=== PATIENT | female | born 1940 | race Caucasian/White ===

== ENCOUNTER 2019-07-05 12:05 | Outpatient (CLI) | payer MEDICARE, OTHER, SELFPAY ==
[2019-07-05 13:10] LABS: Basophils % 0.4 %; Eosinophils # 0.1 10^3/uL (0.0-0.8); Eosinophils % 1.3 %; Hematocrit 37.7 % (37.0-47.0); Hemoglobin 11.9 g/dL (11.5-15.3); Lymphocytes # 1.2 10^3/uL (0.8-4.8); Lymphocytes % 22.3 %; Mean Corpuscular HGB Conc 31.6 g/dL (30.0-36.0); Mean Corpuscular Hemoglobin 31.1 pg (28.0-34.0); Mean Corpuscular Volume 98.4 fL (81-99); Mean Platelet Volume 11.6 fL (7.4-10.4); Monocytes # 0.4 10^3/uL (0.2-0.9); Monocytes % 6.6 %; Neutrophils # 3.9 10^3/uL (1.8-7.7); Neutrophils % 69.2 %; Nucleated Red Blood Cells % 0 %; Platelet Count 213 10^3/cmm (130-400); Red Blood Count 3.83 10^6/uL (4.1-5.3); White Blood Count 5.6 10^3/uL (4.0-10.0)
[2019-07-05 13:24] LABS: Alanine Aminotransferase 14 U/L (0-33); Albumin Level 3.7 g/dL (3.5-5.2); Alkaline Phosphatase 73 IU/L (35-105); Anion Gap 12.9 (5-19); Aspartate Amino Transferase 21 U/L (0-32); Blood Urea Nitrogen 10 mg/dL (8-23); Calcium 9.3 mg/dL (8.5-10.5); Carbon Dioxide 27 mmol/L (22-29); Chloride 104 mmol/L (98-107); Globulin 3.8 g/dL (1.3-4.6); Glucose 119 mg/dL (65-115); Lactate Dehydrogenase 185 U/L (135-214); Potassium 3.92; Sodium 140 mmol/L (136-145); Total Bilirubin 0.2 mg/dL (0.15-1.2); Total Protein 7.5 g/dL (6.6-8.7)
--- NOTE | 2019-07-06 07:34 | ONC FU_ITS ---
Dr. Palomares Patient Follow-Up Note Patient: Rosa Joyce Unit #: [id number]: 1940 Dicatated By: Eric Palomares M.D.Date of Visit:Jul 05, 2019 Onc Med Follow-up/Prog Note Chief Complaint: Lymphoma. 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 Sometime in the fall of 2015 she began having diarrhea. She also had a decline in appetite, and she began losing weight. She was seen by Jacquelin Richmond, and she was noted to have an abdominal mass on the right side. Contrast-enhanced CT abdomen/pelvis on 05/14/2016 showed a large soft tissue mass in the mid abdomen measuring 12.1 x 7.7 x 10.4 cm. It was noted to involve several small bowel loops, but without obstruction. She was additionally noted to have a 1.9 x 2.6 cm superficial right inguinal lymph node. There was no other lymphadenopathy noted on that study. There was evidence of small right pleural effusion and some ascites. Multiple low density lesions in the liver were felt to be most compatible with benign cysts. She was referred to Dr. Easley. She underwent right inguinal lymph node biopsy on 05/21/2016. Pathology showed malignant B-cell lymphoma consistent with low-grade (grade 1-2/3) follicular lymphoma. She underwent a course of chemotherapy with 5 cycles of bendamustine/Rituxan, which she completed in October 2016. Her treatment was complicated by moderately severe neutropenia and anemia, but overall she tolerated it well. 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 She was then admitted to the hospital for anticoagulation with heparin. She underwent removal of the Port-A-Cath. She was discharged home on Lovenox, but with subsequent transition to apixaban. A restaging PET/CT on 12/20/2016 showed a 6 cm matted central small bowel mass with SUV 1.4. The findings were felt to be consistent with a near complete response to therapy. Given those findings, she was then followed on observation/expectant management. Restaging CT scans on 02/19/2017 showed resolution of right paratracheal and left axillary lymph nodes. There was confluent central mesenteric lymphadenopathy measuring 4.3 x 4.6 cm, minimally improved compared to the study from November 2016. There was resolution of ascites, but there was some increase in the small right pleural effusion. Repeat CT scans of the chest, abdomen, and pelvis on 08/21/2017 showed increased large right pleural effusion with partial atelectasis of the right lower lobe and subsegmental atelectasis of the right upper and middle lobes. 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 She was noted to have large incarcerated hiatal hernia. There was evidence of cholelithiasis and persistent gallbladder wall or pericholecystic cholecystic edema. Incidental hepatic cysts were unchanged. There was stable central mesenteric scarring and thickening with adjacent small bowel distortion, similar to prior studies. She continued observation/expectant management. On 09/18/2017 she was admitted to the hospital after presenting with a 2-day history of nausea/vomiting along with fatigue and generalized aching. She was noted to have moderately severe neutropenia. Her bone marrow aspiration/biopsy on 09/23/2017 showed no diagnostic findings. The flow cytometry did show a low concentration of a B-cell population with a possible lambda light chain excess, but that was felt to be nonspecific. Her tick fever panel showed a positive IgG antibody to [place] spotted fever at a 1:128 titer. The IgM was negative. By clinical evaluation this appeared to be most likely a viral infection, and she did recover with conservative management. Surveillance CT scans of the chest, abdomen, and pelvis on 02/26/2018 showed moderate to large right pleural effusion, though decreased from the August study. There was no change in the occlusion of the upper aspect of the superior vena cava. There was evidence of a large incarcerated hiatal hernia. The abdomen/pelvis showed stable appearance of central mesenteric scarring involving several loops of small bowel and hepatic flexure of the colon and proximal transverse colon. There was no evidence of neoplastic process of the chest or of the remainder of the abdomen/pelvis. There was evidence of right pelvocaliectasis and possible right ureteropelvic junction obstruction. She was seen for a followup visit on 08/31/2018. Her WBC was moderately decreased, but she appeared stable clinically, and she continued on observation/expectant management for the lymphoma. On 09/03/2018 she presented to the emergency room with abrupt onset of severe weakness. She was not having fever or chills. She was hypotensive. Her WBC was still moderately decreased. Her chemistry studies showed elevated BUN and creatinine. Her SGOT had increased from 43 to 103 U/L. LDH had increased from 219 to 596 U/L. Urinalysis was unrevealing. Chest xray showed no acute findings. She was admitted to the hospital and given IV fluids and empiric antibiotic coverage. She improved clinically. Blood cultures remained negative. She was discharged home on 09/05/2018 on antibiotic coverage with Levaquin. I had seen her for a follow-up visit on 09/07/2018. She was improving clinically, and she continued on observation/expectant management. Her medical history is otherwise unremarkable. She has had no prior medical illnesses or surgeries. She is a nonsmoker. INTERIM HISTORY: She is seen for a scheduled visit. She has been feeling good generally. She has good energy and activity tolerance. ECOG score is 0. Her appetite is fair. She has continued to gain weight. She has no fever or night sweats. She does not complain of shortness of breath, cough, or chest pain. She currently has no GI or complaints. She has been having some joint pain, mainly in the thumbs. She also has some pain in her left shoulder. She does not complain of headache or dizziness, and she has no focal neurologic symptoms. Medications: Acetaminophen 1 Tablet (of 500 mg) Oral PRN, Eliquis 1 (10 mg) Tablet Oral daily, One Daily For Women 1 Tablet Oral daily Allergies: No Known Allergies. Review of Systems: Constitutional - She has good energy, and she has normal activity. Appetite is fair. She has continued to gain weight. No fever or night sweats. ECOG score is 1, ENMT - She has occasional sinus drainage. No mouth sores. Her throat is sometimes a little achy. She has no difficulty swallowing, Hematologic/Lymphatic - She has some bruising, Respiratory - No shortness of breath. No cough. No pleuritic pain or hemoptysis, Cardiovascular - No angina pain. No palpitations, Gastrointestinal - No nausea or vomiting. No heartburn or acid reflux. No diarrhea or constipation. No blood in the stool or black stools, Genitourinary (F) - No dysuria or hematuria. No urgency or incontinence, Musculoskeletal - She has a little joint pain, mainly in her thumbs, and she has pain in her left shoulder, Integumentary - No skin complications, Neurologic - No headache or dizziness. No numbness/paresthesias or other focal neurologic symptoms, Psychiatric - No anxiety or depression. No insomnia. Vital Signs: Performed on Jul 05, 2019 13:48 Height - 64.00 in Weight - 101.6 lbs (HIGH) BSA - 1.47 sq.m BMI - 17.44 (LOW) Temperature - 98.2 F (LOW) Pulse - 69 /min Respiration - 19 /min BP - 121/86 mm(hg) O2 Sat - 97 % Pain - 0 Physical Examination: Constitutional - She looks pretty good generally, Eyes - Sclerae nonicteric. Conjunctivae clear, ENMT - No lesions noted in the oral cavity, Hematologic/Lymphatic - No cervical, clavicular, or axillary adenopathy, Respiratory - Lungs are clear with good air movement bilaterally, Cardiovascular - Heart rhythm is regular. There is no murmur, gallop, or rub noted, Abdomen - Abdomen is still mildly distended and tympanic. Liver and spleen are not enlarged. There is no abdominal mass or ascites noted and there is no inguinal adenopathy, Extremities - Slight edema, Neurologic - No focal neurologic deficits noted. Lab/Imaging: Test performed on Jul 05, 2019 12:22 LDH (Total) 185 U/L Sodium 140 mmol/L Potassium 3.92 mmol/L Chloride 104 mmol/L CO2 27 mmol/L Anion Gap 12.9 BUN 10 mg/dL Creatinine 0.7 mg/dL Cr Clearance (Est) 47.41 mL/min Glucose 119 mg/dL Calcium 9.3 mg/dL Protein, Total 7.5 g/dL Albumin 3.7 g/dL Globulin 3.8 g/dL Bilirubin, Total 0.2 mg/dL ALT (SGPT) 14 U/L AST (SGOT) 21 U/L Alkaline Phosphatase 73 IU/L WBC 5.6 10 3/uL RBC 3.83 10 6/uL HGB 11.9 g/dL HCT 37.7 % MCV 98.4 fL MCH 31.1 pg MCHC 31.6 g/dL RDW 15.0 % Platelet Count 213 10 3/cmm MPV 11.6 fL Neutrophils 3.9 10 3/uL Lymphocytes 1.2 10 3/uL Monocytes 0.4 10 3/uL Eosinophils 0.1 10 3/uL Basophils 0.0 10 3/uL Neutrophil % 69.2 % Lymphocyte % 22.3 % Monocyte % 6.6 % Eosinophil % 1.3 % Basophils % 0.4 % Impression: 1. 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 Involvement appeared to be limited to a large abdominal mass and a right inguinal lymph node. As such, her disease was stage II. 2. CT findings also included small right pleural effusion and ascites. She also is moderately anemic. 3. She had chronic diarrhea, possibly due to involvement in the small bowel, and she was moderately anemic at baseline. 4. She had GERD symptoms and evidence of hiatal hernia by CT scan. She underwent treatment with 5 cycles of bendamustine/Rituxan from May through October 2016. Her cycle 6 was delayed 2 weeks due to moderately severe neutropenia. At that point she presented with facial swelling and jugulovenous distention, and repeat CT scans showed evidence of superior vena cava thrombus. She underwent removal of the Port-A-Cath venous access device, following which she continued anticoagulation with Lovenox, subsequently transitioned to apixaban. Her restaging PET/CT on 12/20/2016 showed residual 6 cm centimeter mass in the central small bowel, but with minimal FDG activity, consistent with near complete response to therapy. Given those findings, she was then followed on observation/expectant management. During subsequent follow-up, she had gradual improvement in her performance status. Her surveillance CT scans had shown persistent thrombus in the superior vena cava and there was evidence of increasing right pleural effusion, which did not appear to be symptomatic. As of her follow-up visit on 08/25/2017, there was no other indication of disease progression and she continued on observation/expectant management. In September 2017 she was admitted to the hospital with moderately severe neutropenia in association with a 2-day history of nausea/vomiting, fatigue, generalized aching, and chills, but no fever. Bone marrow aspiration/biopsy showed no diagnostic findings. Clinically the illness appeared most consistent with a viral syndrome, and she had an uneventful recovery with conservative management. Her surveillance CT scans on February 2018 showed no evidence of disease progression. On 09/03/2018 she was admitted to the hospital with severe weakness and hypotension. Her neutrophil count was still moderately decreased. Her LDH level had increased significantly. A specific cause for the illness was not identified, but she did show significant improvement on empiric antibiotic coverage with Levaquin. During subsequent follow-up there was gradual improvement in her performance status. She has since then been doing well clinically with no evidence of progression of the lymphoma. Plan: She remains on observation/expectant management. I will see her again in 6 months, or sooner as needed. Signed By: Eric Palomares M.D. <<Signature on File>>
== END 2019-07-05 12:06 | disposition home or self-care (01) ==
LOC: ONCMED 12:11
PROVIDERS: Visit Provider Internal Medicine Medical Oncology
DX: Z08 Encounter for follow-up examination after completed treatment for malignant neoplasm (principal); Z85.72 Personal history of non-Hodgkin lymphomas; Z23 Encounter for immunization; K21.9 Gastro-esophageal reflux disease without esophagitis; K44.9 Diaphragmatic hernia without obstruction or gangrene; Z79.01 Long term (current) use of anticoagulants; Z92.21 Personal history of antineoplastic chemotherapy; Z92.25 Personal history of immunosuppression therapy
CPT/HCPCS: 36415; 80053; 83615; 85025; 90471; G0463

== ENCOUNTER 2020-01-03 13:45 | Outpatient (CLI) | payer MEDICARE, OTHER, SELFPAY ==
[2020-01-03 14:05] LABS: Basophils % 0.4 %; Eosinophils # 0.1 10^3/uL (0.0-0.8); Eosinophils % 0.9 %; Hematocrit 42.2 % (37.0-47.0); Lymphocytes # 1.4 10^3/uL (0.8-4.8); Lymphocytes % 24.7 %; Mean Corpuscular HGB Conc 30.8 g/dL (30.0-36.0); Mean Corpuscular Hemoglobin 30.4 pg (28.0-34.0); Mean Corpuscular Volume 98.8 fL (81-99); Mean Platelet Volume 11.1 fL (7.4-10.4); Monocytes # 0.3 10^3/uL (0.2-0.9); Monocytes % 5.8 %; Neutrophils # 3.86 10^3/uL (1.8-7.7); Nucleated Red Blood Cells % 0 %; Platelet Count 227 10^3/cmm (130-400); Red Blood Count 4.27 10^6/uL (4.1-5.3); Red Cell Distribution Width 15.6 % (12.1-15.1); White Blood Count 5.7 10^3/uL (4.0-10.0)
[2020-01-03 14:29] LABS: Alanine Aminotransferase 18 U/L (0-33); Albumin Level 4.1 g/dL (3.5-5.2); Alkaline Phosphatase 73 IU/L (35-105); Aspartate Amino Transferase 23 U/L (0-32); Blood Urea Nitrogen 10 mg/dL (8-23); Carbon Dioxide 26 mmol/L (22-29); Chloride 104 mmol/L (98-107); Globulin 4.2 g/dL (1.3-4.6); Glucose 106 mg/dL (65-115); Osmolality Calculated 286 mOsm/kg (285-295); Sodium 140 mmol/L (136-145); Total Bilirubin 0.3 mg/dL (0.15-1.2); Total Protein 8.3 g/dL (6.6-8.7)
[2020-01-03 14:51] LABS: Anion Gap 14.1 (5-19); Lactate Dehydrogenase 203 U/L (135-214); Potassium 4.1 mmol/L (3.5-5.1)
--- NOTE | 2020-01-03 19:09 | ONC FU_ITS ---
Dr. Palomares Patient Follow-Up Note Patient: Rosa Joyce Unit #: [id number]: [id number] Dicatated By: Eric Palomares M.D.Date of Visit:Jan 03, 2020 Onc Med Follow-up/Prog Note Chief Complaint: Lymphoma. 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 Sometime in the fall of 2015 she began having diarrhea. She also had a decline in appetite, and she began losing weight. She was seen by Jacquelin Richmond, and she was noted to have an abdominal mass on the right side. Contrast-enhanced CT abdomen/pelvis on 05/14/2016 showed a large soft tissue mass in the mid abdomen measuring 12.1 x 7.7 x 10.4 cm. It was noted to involve several small bowel loops, but without obstruction. She was additionally noted to have a 1.9 x 2.6 cm superficial right inguinal lymph node. There was no other lymphadenopathy noted on that study. There was evidence of small right pleural effusion and some ascites. Multiple low density lesions in the liver were felt to be most compatible with benign cysts. She was referred to Dr. Easley. She underwent right inguinal lymph node biopsy on 05/21/2016. Pathology showed malignant B-cell lymphoma consistent with low-grade (grade 1-2/3) follicular lymphoma. She underwent a course of chemotherapy with 5 cycles of bendamustine/Rituxan, which she completed in October 2016. Her treatment was complicated by moderately severe neutropenia and anemia, but overall she tolerated it well. 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 She was then admitted to the hospital for anticoagulation with heparin. She underwent removal of the Port-A-Cath. She was discharged home on Lovenox, but with subsequent transition to apixaban. A restaging PET/CT on 12/20/2016 showed a 6 cm matted central small bowel mass with SUV 1.4. The findings were felt to be consistent with a near complete response to therapy. Given those findings, she was then followed on observation/expectant management. Restaging CT scans on 02/19/2017 showed resolution of right paratracheal and left axillary lymph nodes. There was confluent central mesenteric lymphadenopathy measuring 4.3 x 4.6 cm, minimally improved compared to the study from November 2016. There was resolution of ascites, but there was some increase in the small right pleural effusion. Repeat CT scans of the chest, abdomen, and pelvis on 08/21/2017 showed increased large right pleural effusion with partial atelectasis of the right lower lobe and subsegmental atelectasis of the right upper and middle lobes. 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 She was noted to have large incarcerated hiatal hernia. There was evidence of cholelithiasis and persistent gallbladder wall or pericholecystic cholecystic edema. Incidental hepatic cysts were unchanged. There was stable central mesenteric scarring and thickening with adjacent small bowel distortion, similar to prior studies. She continued observation/expectant management. On 09/18/2017 she was admitted to the hospital after presenting with a 2-day history of nausea/vomiting along with fatigue and generalized aching. She was noted to have moderately severe neutropenia. Her bone marrow aspiration/biopsy on 09/23/2017 showed no diagnostic findings. The flow cytometry did show a low concentration of a B-cell population with a possible lambda light chain excess, but that was felt to be nonspecific. Her tick fever panel showed a positive IgG antibody to [place] spotted fever at a 1:128 titer. The IgM was negative. By clinical evaluation this appeared to be most likely a viral infection, and she did recover with conservative management. Surveillance CT scans of the chest, abdomen, and pelvis on 02/26/2018 showed moderate to large right pleural effusion, though decreased from the August study. There was no change in the occlusion of the upper aspect of the superior vena cava. There was evidence of a large incarcerated hiatal hernia. The abdomen/pelvis showed stable appearance of central mesenteric scarring involving several loops of small bowel and hepatic flexure of the colon and proximal transverse colon. There was no evidence of neoplastic process of the chest or of the remainder of the abdomen/pelvis. There was evidence of right pelvocaliectasis and possible right ureteropelvic junction obstruction. She was seen for a followup visit on 08/31/2018. Her WBC was moderately decreased, but she appeared stable clinically, and she continued on observation/expectant management for the lymphoma. On 09/03/2018 she presented to the emergency room with abrupt onset of severe weakness. She was not having fever or chills. She was hypotensive. Her WBC was still moderately decreased. Her chemistry studies showed elevated BUN and creatinine. Her SGOT had increased from 43 to 103 U/L. LDH had increased from 219 to 596 U/L. Urinalysis was unrevealing. Chest xray showed no acute findings. She was admitted to the hospital and given IV fluids and empiric antibiotic coverage. She improved clinically. Blood cultures remained negative. She was discharged home on 09/05/2018 on antibiotic coverage with Levaquin. I had seen her for a follow-up visit on 09/07/2018. She was improving clinically, and she continued on observation/expectant management. Her medical history is otherwise unremarkable. She has had no prior medical illnesses or surgeries. She is a nonsmoker. INTERIM HISTORY: She is seen for a scheduled visit. She has been feeling good generally. She has good energy and she has normal activity. 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 Her ECOG score is 0. She has good appetite, though she eats just small meals. She has not been able to maintain her weight, and she actually is down 6 pounds from her last visit. She does not have fever or night sweats. She has no shortness of breath, cough, or chest pain. She has occasional nausea and/or heartburn, but that has been associated with specific foods. She has no other GI or complaints. She sometimes has muscle cramps in her legs, usually when she first gets up in the morning. She has no significant joint or bone pain. She has no focal neurologic symptoms. Medications: Acetaminophen 1 Tablet (of 500 mg) Oral PRN, Eliquis 1 (10 mg) Tablet Oral daily, One Daily For Women 1 Tablet Oral daily Allergies: No Known Allergies. Review of Systems: Constitutional - She has been feeling good. Her energy is good and she has normal acitivity without restrictions. Her appetite is good and she is eating well, but she is not able to maintain weight. She is down 6 pounds from last visit. No fever, night sweats, or hot flashes. ECOG score is 0, ENMT - No sinus congestion/drainage. No mouth sores. No sore throat or difficulty swallowing, Hematologic/Lymphatic - No abnormal bruising or bleeding, Respiratory - No shortness of breath. No cough. No pleuritic pain or hemoptysis, Cardiovascular - No angina pain. No palpitations, Gastrointestinal - She has occasional nausea, associated with specific foods. No vomiting. She also has occasional heartburn depending on what she eats. No diarrhea or constipation. No blood in the stool or black stools, Genitourinary (F) - No dysuria or hematuria. No urinary frequency. No urgency or incontinence, Musculoskeletal - She has occasional cramping in her legs. This is mainly in the mornings. She has no significant joint or bone pain, Integumentary - No skin complications, Neurologic - No headache or dizziness. No numbness or tingling. No other focal neurologic symptoms, Psychiatric - No anxiety or depression. No insomnia. Vital Signs: Performed on Jan 03, 2020 14:55 Height - 64.00 in Weight - 95.4 lbs (LOW) BSA - 1.43 sq.m BMI - 16.38 (LOW) Temperature - 98.3 F (LOW) Pulse - 60 /min Respiration - 18 /min BP - 153/82 mm(hg) (HIGH) O2 Sat - 98 % Pain - 0 Physical Examination: Constitutional - She appears thin and somewhat frail, but she otherwise looks good generally, Eyes - Sclerae nonicteric. Conjunctivae clear, ENMT - No lesions noted in the oral cavity, Hematologic/Lymphatic - No cervical, clavicular, or axillary adenopathy, Respiratory - Lungs are clear with good air movement bilaterally, Cardiovascular - Heart rhythm is regular. There is no murmur, gallop, or rub noted, Abdomen - Abdomen is soft. Liver and spleen are not enlarged. There is no abdominal mass or ascites noted and there is no inguinal adenopathy, Extremities - No edema. Pedal pulses are palpable bilaterally, Neurologic - No focal neurologic deficits noted. Lab/Imaging: Test performed on Jan 03, 2020 13:54 LDH (Total) 203 U/L Sodium 140 mmol/L Potassium 4.1 mmol/L Chloride 104 mmol/L CO2 26 mmol/L Anion Gap 14.1 BUN 10 mg/dL Creatinine 0.9 mg/dL Cr Clearance (Est) 34.06 mL/min Glucose 106 mg/dL Calcium 10.0 mg/dL Protein, Total 8.3 g/dL Albumin 4.1 g/dL Globulin 4.2 g/dL Bilirubin, Total 0.3 mg/dL ALT (SGPT) 18 U/L AST (SGOT) 23 U/L Alkaline Phosphatase 73 IU/L WBC 5.7 10 3/uL RBC 4.27 10 6/uL HGB 13.0 g/dL HCT 42.2 % MCV 98.8 fL MCH 30.4 pg MCHC 30.8 g/dL RDW 15.6 % Platelet Count 227 10 3/cmm MPV 11.1 fL Neutrophils 3.86 10 3/uL Lymphocytes 1.4 10 3/uL Monocytes 0.3 10 3/uL Eosinophils 0.1 10 3/uL Basophils 0.0 10 3/uL Neutrophil % 68.0 % Lymphocyte % 24.7 % Monocyte % 5.8 % Eosinophil % 0.9 % Basophils % 0.4 % NRBC % 0 % Impression: 1. 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 Involvement appeared to be limited to a large abdominal mass and a right inguinal lymph node. As such, her disease was stage II. 2. CT findings also included small right pleural effusion and ascites. She also is moderately anemic. 3. She had chronic diarrhea, possibly due to involvement in the small bowel, and she was moderately anemic at baseline. 4. She had GERD symptoms and evidence of hiatal hernia by CT scan. She underwent treatment with 5 cycles of bendamustine/Rituxan from May through October 2016. Her cycle 6 was delayed 2 weeks due to moderately severe neutropenia. At that point she presented with facial swelling and jugulovenous distention, and repeat CT scans showed evidence of superior vena cava thrombus. She underwent removal of the Port-A-Cath venous access device, following which she continued anticoagulation with Lovenox, subsequently transitioned to apixaban. Her restaging PET/CT on 12/20/2016 showed residual 6 cm centimeter mass in the central small bowel, but with minimal FDG activity, consistent with near complete response to therapy. Given those findings, she was then followed on observation/expectant management. During subsequent follow-up, she had gradual improvement in her performance status. Her surveillance CT scans had shown persistent thrombus in the superior vena cava and there was evidence of increasing right pleural effusion, which did not appear to be symptomatic. As of her follow-up visit on 08/25/2017, there was no other indication of disease progression and she continued on observation/expectant management. In September 2017 she was admitted to the hospital with moderately severe neutropenia in association with a 2-day history of nausea/vomiting, fatigue, generalized aching, and chills, but no fever. Bone marrow aspiration/biopsy showed no diagnostic findings. Clinically the illness appeared most consistent with a viral syndrome, and she had an uneventful recovery with conservative management. Her surveillance CT scans on February 2018 showed no evidence of disease progression. On 09/03/2018 she was admitted to the hospital with severe weakness and hypotension. Her neutrophil count was still moderately decreased. Her LDH level had increased significantly. A specific cause for the illness was not identified, but she did show significant improvement on empiric antibiotic coverage with Levaquin. During subsequent follow-up there was gradual improvement in her performance status. She has since then been doing well clinically. She has good energy and activity tolerance. She has had difficulty maintaining her weight, which may be due at least in part to the fact that she can only eat small meals. She has no other significant GI complaints and there are no other symptoms or findings to suggest recurrence/progression of her lymphoma. Plan: She remains on observation/expectant management. I will see her again in 6 months. Signed By: Eric Palomares M.D. <<Signature on File>>
== END 2020-01-03 13:46 | disposition home or self-care (01) ==
LOC: ONCMED 13:49
PROVIDERS: Visit Provider Internal Medicine Medical Oncology
DX: Z08 Encounter for follow-up examination after completed treatment for malignant neoplasm (principal); Z85.72 Personal history of non-Hodgkin lymphomas; R63.4 Abnormal weight loss; Z68.1 Body mass index [BMI] 19.9 or less, adult; Z92.22 Personal history of monoclonal drug therapy; Z92.21 Personal history of antineoplastic chemotherapy
CPT/HCPCS: 80053; 83615; 85025; G0463

== ENCOUNTER 2020-07-03 12:08 | Outpatient (CLI) | payer MEDICARE, OTHER, SELFPAY ==
[2020-07-03 12:37] LABS: Basophils % 0.5 %; Eosinophils # 0.1 10^3/uL (0.0-0.8); Eosinophils % 1.1 %; Hematocrit 40.7 % (37.0-47.0); Hemoglobin 12.5 g/dL (11.5-15.3); Lymphocytes # 1.1 10^3/uL (0.8-4.8); Lymphocytes % 25.1 %; Mean Corpuscular HGB Conc 30.7 g/dL (30.0-36.0); Mean Corpuscular Volume 97.8 fL (81-99); Mean Platelet Volume 11.1 fL (7.4-10.4); Monocytes # 0.3 10^3/uL (0.2-0.9); Neutrophils # 2.93 10^3/uL (1.8-7.7); Neutrophils % 66.1 %; Nucleated Red Blood Cells % 0 %; Platelet Count 228 10^3/cmm (130-400); Red Blood Count 4.16 10^6/uL (4.1-5.3); Red Cell Distribution Width 15.4 % (12.1-15.1); White Blood Count 4.4 10^3/uL (4.0-10.0)
[2020-07-03 12:59] LABS: Alanine Aminotransferase 16 U/L (0-33); Albumin Level 4.1 g/dL (3.5-5.2); Alkaline Phosphatase 68 IU/L (35-105); Anion Gap 11.9 (5-19); Aspartate Amino Transferase 24 U/L (0-32); Blood Urea Nitrogen 13 mg/dL (8-23); Calcium 9.2 mg/dL (8.5-10.5); Carbon Dioxide 28 mmol/L (22-29); Chloride 103 mmol/L (98-107); Globulin 4.2 g/dL (1.3-4.6); Glucose 94 mg/dL (65-115); Lactate Dehydrogenase 222 U/L (135-214); Osmolality Calculated 288 mOsm/kg (285-295); Potassium 3.9 mmol/L (3.5-5.1); Sodium 139 mmol/L (136-145); Total Bilirubin 0.3 mg/dL (0.15-1.2); Total Protein 8.3 g/dL (6.6-8.7)
--- NOTE | 2020-07-05 06:40 | ONC FU_ITS ---
Dr. Palomares Patient Follow-Up Note Patient: Rosa Joyce Unit #: [id number]: [id number] Dicatated By: Eric Palomares M.D.Date of Visit:Jul 03, 2020 Onc Med Follow-up/Prog Note Chief Complaint: Lymphoma. 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 Sometime in the fall of 2015 she began having diarrhea. She also had a decline in appetite, and she began losing weight. She was seen by Jacquelin Richmond, and she was noted to have an abdominal mass on the right side. Contrast-enhanced CT abdomen/pelvis on 05/14/2016 showed a large soft tissue mass in the mid abdomen measuring 12.1 x 7.7 x 10.4 cm. It was noted to involve several small bowel loops, but without obstruction. She was additionally noted to have a 1.9 x 2.6 cm superficial right inguinal lymph node. There was no other lymphadenopathy noted on that study. There was evidence of small right pleural effusion and some ascites. Multiple low density lesions in the liver were felt to be most compatible with benign cysts. She was referred to Dr. Easley. She underwent right inguinal lymph node biopsy on 05/21/2016. Pathology showed malignant B-cell lymphoma consistent with low-grade (grade 1-2/3) follicular lymphoma. She underwent a course of chemotherapy with 5 cycles of bendamustine/Rituxan, which she completed in October 2016. Her treatment was complicated by moderately severe neutropenia and anemia, but overall she tolerated it well. 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 She was then admitted to the hospital for anticoagulation with heparin. She underwent removal of the Port-A-Cath. She was discharged home on Lovenox, but with subsequent transition to apixaban. A restaging PET/CT on 12/20/2016 showed a 6 cm matted central small bowel mass with SUV 1.4. The findings were felt to be consistent with a near complete response to therapy. Given those findings, she was then followed on observation/expectant management. Restaging CT scans on 02/19/2017 showed resolution of right paratracheal and left axillary lymph nodes. There was confluent central mesenteric lymphadenopathy measuring 4.3 x 4.6 cm, minimally improved compared to the study from November 2016. There was resolution of ascites, but there was some increase in the small right pleural effusion. Repeat CT scans of the chest, abdomen, and pelvis on 08/21/2017 showed increased large right pleural effusion with partial atelectasis of the right lower lobe and subsegmental atelectasis of the right upper and middle lobes. 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 She was noted to have large incarcerated hiatal hernia. There was evidence of cholelithiasis and persistent gallbladder wall or pericholecystic cholecystic edema. Incidental hepatic cysts were unchanged. There was stable central mesenteric scarring and thickening with adjacent small bowel distortion, similar to prior studies. She continued observation/expectant management. On 09/18/2017 she was admitted to the hospital after presenting with a 2-day history of nausea/vomiting along with fatigue and generalized aching. She was noted to have moderately severe neutropenia. Her bone marrow aspiration/biopsy on 09/23/2017 showed no diagnostic findings. The flow cytometry did show a low concentration of a B-cell population with a possible lambda light chain excess, but that was felt to be nonspecific. Her tick fever panel showed a positive IgG antibody to [place] spotted fever at a 1:128 titer. The IgM was negative. By clinical evaluation this appeared to be most likely a viral infection, and she did recover with conservative management. Surveillance CT scans of the chest, abdomen, and pelvis on 02/26/2018 showed moderate to large right pleural effusion, though decreased from the August study. There was no change in the occlusion of the upper aspect of the superior vena cava. There was evidence of a large incarcerated hiatal hernia. The abdomen/pelvis showed stable appearance of central mesenteric scarring involving several loops of small bowel and hepatic flexure of the colon and proximal transverse colon. There was no evidence of neoplastic process of the chest or of the remainder of the abdomen/pelvis. There was evidence of right pelvocaliectasis and possible right ureteropelvic junction obstruction. She was seen for a followup visit on 08/31/2018. Her WBC was moderately decreased, but she appeared stable clinically, and she continued on observation/expectant management for the lymphoma. On 09/03/2018 she presented to the emergency room with abrupt onset of severe weakness. She was not having fever or chills. She was hypotensive. Her WBC was still moderately decreased. Her chemistry studies showed elevated BUN and creatinine. Her SGOT had increased from 43 to 103 U/L. LDH had increased from 219 to 596 U/L. Urinalysis was unrevealing. Chest xray showed no acute findings. She was admitted to the hospital and given IV fluids and empiric antibiotic coverage. She improved clinically. Blood cultures remained negative. She was discharged home on 09/05/2018 on antibiotic coverage with Levaquin. I had seen her for a follow-up visit on 09/07/2018. She was improving clinically, and she continued on observation/expectant management. During follow-up her liver enzymes returned to normal and her LDH remains just slightly elevated. Her medical history is otherwise unremarkable. She has had no prior medical illnesses or surgeries. She is a nonsmoker. INTERIM HISTORY: She is seen for a scheduled visit. She has been feeling good generally. She has good energy and activity tolerance. She says she walks every day. ECOG score is 0. Her appetite is been okay, though she says she is not a big eater. Her weight is down a couple pounds. She does not have fever or night sweats. She has some cough attributable to sinus drainage. She has no shortness of breath or chest pain. She has no GI or complaints. She has a little arthritis in her left thumb. She has no other joint or bone pain. She does not complain of headache or dizziness. She has no focal neurologic symptoms. Medications: Acetaminophen 1 Tablet (of 500 mg) Oral PRN, One Daily For Women 1 Tablet Oral daily, Xarelto 1 (10 mg) Tablet Oral daily Allergies: No Known Allergies. Vital Signs: Performed on Jul 03, 2020 14:06 Height - 64.00 in Weight - 93.8 lbs (LOW) BSA - 1.42 sq.m BMI - 16.10 (LOW) Temperature - 98.1 F (LOW) Pulse - 77 /min Respiration - 17 /min BP - 174/99 mm(hg) (HIGH) O2 Sat - 99 % Pain - 0 Physical Examination: Constitutional - She looks good generally, Eyes - Sclerae nonicteric. Conjunctivae clear, ENMT - No lesions noted in the oral cavity, Hematologic/Lymphatic - No cervical, clavicular, or axillary adenopathy, Respiratory - Lungs are clear with good air movement bilaterally, Cardiovascular - Heart rhythm is regular. There is no murmur, gallop, or rub noted, Abdomen - Abdomen is soft. Liver and spleen are not enlarged. There is no abdominal mass or ascites noted and there is no inguinal adenopathy, Extremities - No edema, Neurologic - No focal neurologic deficits noted. Lab/Imaging: Test performed on Jul 03, 2020 12:29 LDH (Total) 222 U/L Sodium 139 mmol/L Potassium 3.9 mmol/L Chloride 103 mmol/L CO2 28 mmol/L Anion Gap 11.9 BUN 13 mg/dL Creatinine 0.8 mg/dL Cr Clearance (Est) 37.67 mL/min Glucose 94 mg/dL Osmolality - Calculated 288 mOsm/kg Calcium 9.2 mg/dL Protein, Total 8.3 g/dL Albumin 4.1 g/dL Globulin 4.2 g/dL Bilirubin, Total 0.3 mg/dL ALT (SGPT) 16 U/L AST (SGOT) 24 U/L Alkaline Phosphatase 68 IU/L WBC 4.4 10 3/uL RBC 4.16 10 6/uL HGB 12.5 g/dL HCT 40.7 % MCV 97.8 fL MCH 30.0 pg MCHC 30.7 g/dL RDW 15.4 % Platelet Count 228 10 3/cmm MPV 11.1 fL Neutrophils 2.93 10 3/uL Lymphocytes 1.1 10 3/uL Monocytes 0.3 10 3/uL Eosinophils 0.1 10 3/uL Basophils 0.0 10 3/uL Neutrophil % 66.1 % Lymphocyte % 25.1 % Monocyte % 7.0 % Eosinophil % 1.1 % Basophils % 0.5 % NRBC % 0 % Problem List: 1. 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 Involvement appeared to be limited to a large abdominal mass and a right inguinal lymph node. As such, her disease was stage II. 2. She had GERD symptoms and evidence of hiatal hernia by CT scan. 3. Her treatment was complicated by portacath related superior vena cava thrombus. She underwent removal of the Port-A-Cath venous access device, following which she continued anticoagulation with Lovenox, subsequently transitioned to apixaban. Problems Addressed with this Encounter and Plan: 1. 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 Involvement appeared to be limited to a large abdominal mass and the right inguinal lymph node. As such, her disease was stage II, though CT findings also included small right pleural effusion and ascites. At pressentation she had chronic diarrhea, possibly due to involvement in the small bowel, and she was moderately anemic at baseline. She underwent treatment with 5 cycles of bendamustine/Rituxan from May through October 2016. Her restaging PET/CT on 12/20/2016 showed residual 6 cm centimeter mass in the central small bowel, but with minimal FDG activity, consistent with near complete response to therapy. Given those findings, she was then followed on observation/expectant management. During follow-up she has had a couple of hospitalizations for acute GI related illnesses, but these resolved with conservative management. Thus far there has been no evidence of progression of the lymphoma. Overall, she appears to be doing well clinically. She remains on observation/expectant management. I will see her again in 6 months. 2. Her treatment was complicated by portacath related superior vena cava thrombus. She underwent removal of the Port-A-Cath venous access device, following which she continued anticoagulation with Lovenox, subsequently transitioned to apixaban. During follow-up she has continued anticoagulation with apixaban. Thus far there has been no evidence for any further thromboembolism. Signed By: Eric Palomares M.D. <<Signature on File>>
== END 2020-07-03 12:09 | disposition home or self-care (01) ==
LOC: ONCMED 12:11
PROVIDERS: Visit Provider Internal Medicine Medical Oncology
DX: C82.18 Follicular lymphoma grade II, lymph nodes of multiple sites (principal); Z86.718 Personal history of other venous thrombosis and embolism; Z79.01 Long term (current) use of anticoagulants; Z92.22 Personal history of monoclonal drug therapy; Z92.21 Personal history of antineoplastic chemotherapy
CPT/HCPCS: 36415; 80053; 83615; 85025; 99214

== ENCOUNTER 2021-01-01 10:26 | Outpatient (CLI) | payer MEDICARE, OTHER, SELFPAY ==
--- NOTE | 2021-01-01 11:04 | CT_ITS ---
WS: [id number] CT CHEST, ABDOMEN AND PELVIS WITH CONTRAST. HISTORY: LYMPHOMA TECHNIQUE: Contiguous 5 mm axial imaging performed through the chest, abdomen and pelvis with IV cont rast, oral contrast has been provided. Coronal and sagittal reformats chest. Coronal and sagittal ref ormats through the abdomen and pelvis. All CT scans at [facility] use at least one of the se dose optimization techniques: automated exposure control; mA and/or kV adjustment per patient size (includes targeted exams where dose is matched to clinical indication); or iterative reconstruction. CONTRAST: Omnipaque 300; 75 mL IV. DLP: 907.79 mGy.cm COMPARISON: 02/26/[address]: Moderate-sized layering RIGHT pleural effusion with mild improvement since the prior examin ation from 2018. No pulmonary mass, nodule or pneumonia. Mild atherosclerosis of the thoracic aorta. Ectasia with no aneurysm. Normal pulmonary artery size. No filling defects within the pulmonary arter ies centrally. Partial atelectasis of the RIGHT lower lobe due to the effusion. No mediastinal or hil ar adenopathy is identified. Patient has a known SVC occlusion. Abdomen CT: Normal size liver. There are a few cysts within the liver. Mild central bile duct dilatat ion is similar to the prior study. Patient has known cholelithiasis without acute cholecystitis. Norm al size spleen. Tail of the pancreas is prominent but similar to the prior study. Again noted is an 8 mm cyst within the body of the pancreas which is unchanged. No adrenal mass. Moderate dilatation of the RIGHT renal pelvis is similar to prior studies and probably represents UP junction obstruction. T he ureter distally is not dilated. LEFT kidney is negative. Atherosclerosis aorta. Large portion of the stomach is intrathoracic consistent with an incarcerated hiatal hernia. No adeno jad or ascites is appreciated. There is some very mild tethering of the central small bowel loops a nd mesentery. Very similar to the prior examination. Marked fecal retention and distention of the colon distally. Obstruction. Pelvic CT: No adenopathy along the iliac chains. Well-distended urinary bladder. Atrophic uterus as e xpected. Thoracolumbar scoliosis. Diffuse osteopenia. No osteoblastic or osteolytic bone disease. CT/CT chest abd pel w con* IMPRESSION: 1. No evidence for recurrent lymphoma throughout the chest, abdomen or pelvis. 2. Long-term stability of a layering RIGHT pleural effusion. 3. Moderate constipation in the distal colon. 4. Central small bowel tethering and mesentery similar to the prior study. Not causing an obstruction. May be due to treated lymphoma. There is some very mil d small bowel wall thickening but this is similar to the prior study. 5. Stable RIGHT hydronephrosis, likely due to chronic UP junction obstruction. 6. Large incarcerated hiatal hernia.
[2021-01-01 11:22] LABS: Basophils % 0.3 %; Eosinophils % 0.3 %; Hematocrit 41.4 % (37.0-47.0); Hemoglobin 12.9 g/dL (11.5-15.3); Lymphocytes % 33.1 %; Mean Corpuscular HGB Conc 31.2 g/dL (30.0-36.0); Mean Corpuscular Hemoglobin 29.7 pg (28.0-34.0); Mean Corpuscular Volume 95.4 fl (81-99); Mean Platelet Volume 11.3 fL (7.4-10.4); Monocytes # 0.3 10^3/uL (0.2-0.9); Neutrophils # 1.74 10^3/uL (1.8-7.7); Nucleated Red Blood Cells % 0 %; Platelet Count 185 10^3/cmm (130-400); Red Blood Count 4.34 10^6/uL (4.1-5.3); Red Cell Distribution Width 14.5 % (12.1-15.1); White Blood Count 3.1 10^3/uL (4.0-10.0)
[2021-01-01 11:41] LABS: Alanine Aminotransferase 15 U/L (0-33); Albumin Level 3.9 g/dL (3.5-5.2); Alkaline Phosphatase 67 IU/L (35-105); Anion Gap 12.6 (5-19); Aspartate Amino Transferase 26 U/L (0-32); Blood Urea Nitrogen 10 mg/dL (8-23); Calcium 8.5 mg/dL (8.5-10.5); Carbon Dioxide 26 mmol/L (22-29); Chloride 105 mmol/L (98-107); Globulin 3.8 g/dL (1.3-4.6); Glucose 96 mg/dL (65-115); Lactate Dehydrogenase 230 U/L (135-214); Osmolality Calculated 289 mOsm/kg (285-295); Potassium 3.6 mmol/L (3.5-5.1); Sodium 140 mmol/L (136-145); Total Bilirubin 0.4 mg/dL (0.15-1.2); Total Protein 7.7 g/dL (6.6-8.7)
[2021-01-01] MEDS: iohexol 300 mg/mL 100 mL Btl IV (12:35)
[2021-01-01] MEDS: iohexol 300 mg/mL 50 mL Btl PO (12:36)
== END 2021-01-01 10:27 | disposition home or self-care (01) ==
PROVIDERS: PCP Internal Medicine Medical Oncology; Visit Provider Internal Medicine Medical Oncology
DX: C82.13 Follicular lymphoma grade II, intra-abdominal lymph nodes (principal); K44.9 Diaphragmatic hernia without obstruction or gangrene; N13.30 Unspecified hydronephrosis; K59.00 Constipation, unspecified; J90 Pleural effusion, not elsewhere classified
CPT/HCPCS: 71260; 74177; 80053; 83615; 85025

== ENCOUNTER 2021-01-08 13:38 | Outpatient (CLI) | payer MEDICARE, OTHER, SELFPAY ==
--- NOTE | 2021-01-08 18:20 | ONC FU_ITS ---
Dr. Palomares Patient Follow-Up Note Patient: Rosa Joyce Unit #: [id number]: [id number] Dicatated By: Eric Palomares M.D.Date of Visit:Jan 08, 2021 Onc Med Follow-up/Prog Note Chief Complaint: Lymphoma. 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 Sometime in the fall of 2015 she began having diarrhea. She also had a decline in appetite, and she began losing weight. She was seen by Jacquelin Richmond, and she was noted to have an abdominal mass on the right side. Contrast-enhanced CT abdomen/pelvis on 05/14/2016 showed a large soft tissue mass in the mid abdomen measuring 12.1 x 7.7 x 10.4 cm. It was noted to involve several small bowel loops, but without obstruction. She was additionally noted to have a 1.9 x 2.6 cm superficial right inguinal lymph node. There was no other lymphadenopathy noted on that study. There was evidence of small right pleural effusion and some ascites. Multiple low density lesions in the liver were felt to be most compatible with benign cysts. She was referred to Dr. Easley. She underwent right inguinal lymph node biopsy on 05/21/2016. Pathology showed malignant B-cell lymphoma consistent with low-grade (grade 1-2/3) follicular lymphoma. She underwent a course of chemotherapy with 5 cycles of bendamustine/Rituxan, which she completed in October 2016. Her treatment was complicated by moderately severe neutropenia and anemia, but overall she tolerated it well. 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 She was then admitted to the hospital for anticoagulation with heparin. She underwent removal of the Port-A-Cath. She was discharged home on Lovenox, but with subsequent transition to apixaban. A restaging PET/CT on 12/20/2016 showed a 6 cm matted central small bowel mass with SUV 1.4. The findings were felt to be consistent with a near complete response to therapy. Given those findings, she was then followed on observation/expectant management. Restaging CT scans on 02/19/2017 showed resolution of right paratracheal and left axillary lymph nodes. There was confluent central mesenteric lymphadenopathy measuring 4.3 x 4.6 cm, minimally improved compared to the study from November 2016. There was resolution of ascites, but there was some increase in the small right pleural effusion. Repeat CT scans of the chest, abdomen, and pelvis on 08/21/2017 showed increased large right pleural effusion with partial atelectasis of the right lower lobe and subsegmental atelectasis of the right upper and middle lobes. 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 She was noted to have large incarcerated hiatal hernia. There was evidence of cholelithiasis and persistent gallbladder wall or pericholecystic cholecystic edema. Incidental hepatic cysts were unchanged. There was stable central mesenteric scarring and thickening with adjacent small bowel distortion, similar to prior studies. She continued observation/expectant management. On 09/18/2017 she was admitted to the hospital after presenting with a 2-day history of nausea/vomiting along with fatigue and generalized aching. She was noted to have moderately severe neutropenia. Her bone marrow aspiration/biopsy on 09/23/2017 showed no diagnostic findings. The flow cytometry did show a low concentration of a B-cell population with a possible lambda light chain excess, but that was felt to be nonspecific. Her tick fever panel showed a positive IgG antibody to [place] spotted fever at a 1:128 titer. The IgM was negative. By clinical evaluation this appeared to be most likely a viral infection, and she did recover with conservative management. Surveillance CT scans of the chest, abdomen, and pelvis on 02/26/2018 showed moderate to large right pleural effusion, though decreased from the August study. There was no change in the occlusion of the upper aspect of the superior vena cava. There was evidence of a large incarcerated hiatal hernia. The abdomen/pelvis showed stable appearance of central mesenteric scarring involving several loops of small bowel and hepatic flexure of the colon and proximal transverse colon. There was no evidence of neoplastic process of the chest or of the remainder of the abdomen/pelvis. There was evidence of right pelvocaliectasis and possible right ureteropelvic junction obstruction. She was seen for a followup visit on 08/31/2018. Her WBC was moderately decreased, but she appeared stable clinically, and she continued on observation/expectant management for the lymphoma. On 09/03/2018 she presented to the emergency room with abrupt onset of severe weakness. She was not having fever or chills. She was hypotensive. Her WBC was still moderately decreased. Her chemistry studies showed elevated BUN and creatinine. Her SGOT had increased from 43 to 103 U/L. LDH had increased from 219 to 596 U/L. Urinalysis was unrevealing. Chest xray showed no acute findings. She was admitted to the hospital and given IV fluids and empiric antibiotic coverage. She improved clinically. Blood cultures remained negative. She was discharged home on 09/05/2018 on antibiotic coverage with Levaquin. I had seen her for a follow-up visit on 09/07/2018. She was improving clinically, and she continued on observation/expectant management. During follow-up her liver enzymes returned to normal and her LDH remained just slightly elevated. Her medical history is otherwise unremarkable. She has had no prior medical illnesses or surgeries. She is a nonsmoker. INTERIM HISTORY: Her repeat CT scans of the chest, abdomen, and pelvis on 01/01/2021 showed no hilar or mediastinal adenopathy. There was noted to be long-term stability of a layering right pleural effusion. A large portion of the stomach was noted to be intrathoracic, consistent with an incarcerated hiatal hernia. There was noted to be some very mild tethering of the central small bowel loops and mesentery, similar to the prior study in February 2018. There was stable right hydronephrosis which appeared to be likely due to chronic UP junction obstruction. There was no adenopathy noted in the abdomen/pelvis. Overall, there was no evidence for recurrent lymphoma throughout the chest, abdomen, or pelvis. She is seen for a followup visit. She has been feeling good generally. She has pretty good energy/activity tolerance. ECOG score is 0. Her appetite has been good, but she has not been able to gain weight. She does not have fever or night sweats. She recently has had a little bit of sinus congestion and cough, but that seems to be getting better. She does not complain of shortness of breath or chest pain. She has no GI or complaints. She has no significant joint or bone pain. She does not complain of headache or dizziness. She has no numbness/paresthesia or other focal neurologic symptoms. Medications: Acetaminophen 1 Tablet (of 500 mg) Oral PRN, One Daily For Women 1 Tablet Oral daily, Xarelto 1 (10 mg) Tablet Oral daily Allergies: No Known Allergies. Vital Signs: Performed on Jan 08, 2021 16:01 Height - 64.00 in Weight - 90.4 lbs (LOW) BSA - 1.40 sq.m BMI - 15.52 (LOW) Temperature - 98.9 F (HIGH) Pulse - 72 /min Respiration - 18 /min BP - 157/82 mm(hg) (HIGH) O2 Sat - 94 % (LOW) Pain - 0 Fatigue - 0 Physical Examination: Constitutional - She looks pretty good generally, Eyes - Sclerae nonicteric. Conjunctivae clear, ENMT - No lesions noted in the oral cavity, Hematologic/Lymphatic - No cervical, clavicular, or axillary adenopathy, Respiratory - Lungs are clear with good air movement bilaterally, Cardiovascular - Heart rhythm is regular. There is no murmur, gallop, or rub noted, Abdomen - Abdomen is soft. Liver and spleen are not enlarged. There is no abdominal mass or ascites noted and there is no inguinal adenopathy, Extremities - No edema, Neurologic - No focal neurologic deficits noted. Lab/Imaging: Test performed on Jan 01, 2021 11:05 LDH (Total) 230 U/L Sodium 140 mmol/L Potassium 3.6 mmol/L Chloride 105 mmol/L CO2 26 mmol/L Anion Gap 12.6 BUN 10 mg/dL Creatinine 0.7 mg/dL Cr Clearance (Est) 42.3400 mL/min Glucose 96 mg/dL Osmolality - Calculated 289 mOsm/kg Calcium 8.5 mg/dL Protein, Total 7.7 g/dL Albumin 3.9 g/dL Globulin 3.8 g/dL Bilirubin, Total 0.4 mg/dL ALT (SGPT) 15 U/L AST (SGOT) 26 U/L Alkaline Phosphatase 67 IU/L WBC 3.1 10 3/uL RBC 4.34 10 6/uL HGB 12.9 g/dL HCT 41.4 % MCV 95.4 fl MCH 29.7 pg MCHC 31.2 g/dL RDW 14.5 % Platelet Count 185 10 3/cmm MPV 11.3 fL Neutrophils 1.74 10 3/uL Lymphocytes 1.0 10 3/uL Monocytes 0.3 10 3/uL Eosinophils 0.0 10 3/uL Basophils 0.0 10 3/uL Neutrophil % 56.0 % Lymphocyte % 33.1 % Monocyte % 10.0 % Eosinophil % 0.3 % Basophils % 0.3 % NRBC % 0 % Problem List: 1. 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 Involvement appeared to be limited to a large abdominal mass and a right inguinal lymph node at initial diagnosis in May 2016. 2. She had GERD symptoms and evidence of hiatal hernia by CT scan. 3. Her treatment was complicated by portacath related superior vena cava thrombus. She underwent removal of the Port-A-Cath venous access device, following which she continued anticoagulation with Lovenox, subsequently transitioned to apixaban. Problems Addressed with this Encounter and Plan: 1. 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 Involvement appeared to be limited to a large abdominal mass and the right inguinal lymph node. As such, her disease was stage II, though CT findings also included small right pleural effusion and ascites. At pressentation she had chronic diarrhea, possibly due to involvement in the small bowel, and she was moderately anemic at baseline. She underwent treatment with 5 cycles of bendamustine/Rituxan from May through October 2016. Her restaging PET/CT on 12/20/2016 showed residual 6 cm centimeter mass in the central small bowel, but with minimal FDG activity, consistent with near complete response to therapy. Given those findings, she was then followed on observation/expectant management. During follow-up she has had a couple of hospitalizations for acute GI related illnesses, but these resolved with conservative management. Overall, she has been doing well clinically. Thus far there has been no evidence of recurrence/progression of the lymphoma. She remains on observation/expectant management. I will see her again in 6 months. 2. Her treatment was complicated by portacath related superior vena cava thrombus. She underwent removal of the Port-A-Cath venous access device, following which she continued anticoagulation with Lovenox, subsequently transitioned to apixaban. During follow-up she has continued anticoagulation with apixaban. Thus far there has been no evidence for any further thromboembolism. Signed By: Eric Palomares M.D. <<Signature on File>>
== END 2021-01-08 13:39 | disposition home or self-care (01) ==
LOC: ONCMED 13:41
PROVIDERS: Visit Provider Internal Medicine Medical Oncology
DX: C82.28 Follicular lymphoma grade III, unspecified, lymph nodes of multiple sites (principal); Z79.01 Long term (current) use of anticoagulants
CPT/HCPCS: 99214

== ENCOUNTER 2021-07-09 13:33 | Outpatient (CLI) | payer MEDICARE, OTHER, SELFPAY ==
[2021-07-09 14:41] LABS: Basophils % 0.6 %; Eosinophils % 0.7 %; Hematocrit 39.8 % (37.0-47.0); Hemoglobin 12.5 g/dL (11.5-15.3); Lymphocytes # 1.1 10^3/uL (0.8-4.8); Mean Corpuscular HGB Conc 31.4 g/dL (30.0-36.0); Mean Corpuscular Volume 95.7 fl (81-99); Mean Platelet Volume 11.4 fL (7.4-10.4); Monocytes # 0.3 10^3/uL (0.2-0.9); Monocytes % 5.6 %; Neutrophils # 3.84 10^3/uL (1.8-7.7); Neutrophils % 71.9 %; Nucleated Red Blood Cells % 0 %; Platelet Count 237 10^3/cmm (130-400); Red Blood Count 4.16 10^6/uL (4.1-5.3); Red Cell Distribution Width 15.1 % (12.1-15.1); White Blood Count 5.3 10^3/uL (4.0-10.0)
[2021-07-09 15:00] LABS: Alanine Aminotransferase 23 U/L (0-33); Albumin Level 4.3 g/dL (3.5-5.2); Alkaline Phosphatase 77 IU/L (35-105); Aspartate Amino Transferase 27 U/L (0-32); Blood Urea Nitrogen 14 mg/dL (8-23); Calcium 9.4 mg/dL (8.5-10.5); Carbon Dioxide 26 mmol/L (22-29); Chloride 103 mmol/L (98-107); Globulin 4.4 g/dL (1.3-4.6); Glucose 110 mg/dL (65-115); Osmolality Calculated 293 mOsm/kg (285-295); Sodium 141 mmol/L (136-145); Total Bilirubin 0.3 mg/dL (0.15-1.2); Total Protein 8.7 g/dL (6.6-8.7)
[2021-07-09 15:36] LABS: Anion Gap 16.4 (5-19); Lactate Dehydrogenase 247 U/L (135-214); Potassium 4.4 mmol/L (3.5-5.1)
--- NOTE | 2021-07-09 17:40 | ONC FU_ITS ---
Dr. Palomares Patient Follow-Up Note Patient: Rosa Joyce Unit #: [id number]: [id number] Dicatated By: Eric Palomares M.D.Date of Visit:Jul 09, 2021 Onc Med Follow-up/Prog Note Chief Complaint: Lymphoma. 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 Sometime in the fall of 2015 she began having diarrhea. She also had a decline in appetite, and she began losing weight. She was seen by Jacquelin Richmond, and she was noted to have an abdominal mass on the right side. Contrast-enhanced CT abdomen/pelvis on 05/14/2016 showed a large soft tissue mass in the mid abdomen measuring 12.1 x 7.7 x 10.4 cm. It was noted to involve several small bowel loops, but without obstruction. She was additionally noted to have a 1.9 x 2.6 cm superficial right inguinal lymph node. There was no other lymphadenopathy noted on that study. There was evidence of small right pleural effusion and some ascites. Multiple low density lesions in the liver were felt to be most compatible with benign cysts. She was referred to Dr. Easley. She underwent right inguinal lymph node biopsy on 05/21/2016. Pathology showed malignant B-cell lymphoma consistent with low-grade (grade 1-2/3) follicular lymphoma. She underwent a course of chemotherapy with 5 cycles of bendamustine/Rituxan, which she completed in October 2016. Her treatment was complicated by moderately severe neutropenia and anemia, but overall she tolerated it well. 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 She was then admitted to the hospital for anticoagulation with heparin. She underwent removal of the Port-A-Cath. She was discharged home on Lovenox, but with subsequent transition to apixaban. A restaging PET/CT on 12/20/2016 showed a 6 cm matted central small bowel mass with SUV 1.4. The findings were felt to be consistent with a near complete response to therapy. Given those findings, she was then followed on observation/expectant management. Restaging CT scans on 02/19/2017 showed resolution of right paratracheal and left axillary lymph nodes. There was confluent central mesenteric lymphadenopathy measuring 4.3 x 4.6 cm, minimally improved compared to the study from November 2016. There was resolution of ascites, but there was some increase in the small right pleural effusion. Repeat CT scans of the chest, abdomen, and pelvis on 08/21/2017 showed increased large right pleural effusion with partial atelectasis of the right lower lobe and subsegmental atelectasis of the right upper and middle lobes. 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 She was noted to have large incarcerated hiatal hernia. There was evidence of cholelithiasis and persistent gallbladder wall or pericholecystic cholecystic edema. Incidental hepatic cysts were unchanged. There was stable central mesenteric scarring and thickening with adjacent small bowel distortion, similar to prior studies. She continued observation/expectant management. On 09/18/2017 she was admitted to the hospital after presenting with a 2-day history of nausea/vomiting along with fatigue and generalized aching. She was noted to have moderately severe neutropenia. Her bone marrow aspiration/biopsy on 09/23/2017 showed no diagnostic findings. The flow cytometry did show a low concentration of a B-cell population with a possible lambda light chain excess, but that was felt to be nonspecific. Her tick fever panel showed a positive IgG antibody to Bliss spotted fever at a 1:128 titer. The IgM was negative. By clinical evaluation this appeared to be most likely a viral infection, and she did recover with conservative management. Surveillance CT scans of the chest, abdomen, and pelvis on 02/26/2018 showed moderate to large right pleural effusion, though decreased from the August study. There was no change in the occlusion of the upper aspect of the superior vena cava. There was evidence of a large incarcerated hiatal hernia. The abdomen/pelvis showed stable appearance of central mesenteric scarring involving several loops of small bowel and hepatic flexure of the colon and proximal transverse colon. There was no evidence of neoplastic process of the chest or of the remainder of the abdomen/pelvis. There was evidence of right pelvocaliectasis and possible right ureteropelvic junction obstruction. She was seen for a followup visit on 08/31/2018. Her WBC was moderately decreased, but she appeared stable clinically, and she continued on observation/expectant management for the lymphoma. On 09/03/2018 she presented to the emergency room with abrupt onset of severe weakness. She was not having fever or chills. She was hypotensive. Her WBC was still moderately decreased. Her chemistry studies showed elevated BUN and creatinine. Her SGOT had increased from 43 to 103 U/L. LDH had increased from 219 to 596 U/L. Urinalysis was unrevealing. Chest xray showed no acute findings. She was admitted to the hospital and given IV fluids and empiric antibiotic coverage. She improved clinically. Blood cultures remained negative. She was discharged home on 09/05/2018 on antibiotic coverage with Levaquin. I had seen her for a follow-up visit on 09/07/2018. She was improving clinically, and she continued on observation/expectant management. During follow-up her liver enzymes returned to normal and her LDH remained just slightly elevated. Her medical history is otherwise unremarkable. She has had no prior medical illnesses or surgeries. She is a nonsmoker. INTERIM HISTORY: Her repeat CT scans of the chest, abdomen, and pelvis on 01/01/2021 showed no hilar or mediastinal adenopathy. There was noted to be long-term stability of a layering right pleural effusion. A large portion of the stomach was noted to be intrathoracic, consistent with an incarcerated hiatal hernia. There was noted to be some very mild tethering of the central small bowel loops and mesentery, similar to the prior study in February 2018. There was stable right hydronephrosis which appeared to be likely due to chronic UP junction obstruction. There was no adenopathy noted in the abdomen/pelvis. Overall, there was no evidence for recurrent lymphoma throughout the chest, abdomen, or pelvis. As of her follow-up visit on 01/09/2020 when she appeared stable clinically. She continued expectant management. She is seen for a followup visit. She has been feeling good generally. She has good energy and activity tolerance. ECOG score 0. Her appetite has been good. She has gained a little weight. She does not have fever or night sweats. She has some allergy related sinus symptoms with associated cough. She does not complain of shortness of breath or chest pain. She has no GI or complaints. She has a little arthritis in her thumbs. She has no other joint or bone pain. She does not complain of headache or dizziness, and she has no focal neurologic symptoms. Medications: Acetaminophen 1 Tablet (of 500 mg) Oral PRN, One Daily For Women 1 Tablet Oral daily, Xarelto 1 (10 mg) Tablet Oral daily Allergies: No Known Allergies. Vital Signs: Performed on Jul 09, 2021 15:40 Height - 64.00 in BP - 174/92 mm(hg) (HIGH) Performed on Jul 09, 2021 15:39 Height - 64.00 in Weight - 95.4 lbs (HIGH) BSA - 1.43 sq.m BMI - 16.38 (LOW) Temperature - 97.4 F (LOW) Pulse - 62 /min Respiration - 16 /min BP - 176/83 mm(hg) (HIGH) O2 Sat - 99 % Pain - 0 Fatigue - 0 Physical Examination: Constitutional - She looks good generally, Eyes - Sclerae nonicteric. Conjunctivae clear, ENMT - No lesions noted in the oral cavity, Hematologic/Lymphatic - No cervical, clavicular, or axillary adenopathy, Respiratory - Lungs are clear with good air movement bilaterally, Cardiovascular - Heart rhythm is regular. There is no murmur, gallop, or rub noted, Abdomen - Abdomen is soft. Liver and spleen are not enlarged. There is no abdominal mass or ascites noted and there is no inguinal adenopathy, Extremities - No edema, Neurologic - No focal neurologic deficits noted. Lab/Imaging: Test performed on Jul 09, 2021 14:28 LDH (Total) 247 U/L Sodium 141 mmol/L Potassium 4.4 mmol/L Chloride 103 mmol/L CO2 26 mmol/L Anion Gap 16.4 BUN 14 mg/dL Creatinine 0.7 mg/dL Cr Clearance (Est) 43.06 mL/min Glucose 110 mg/dL Osmolality - Calculated 293 mOsm/kg Calcium 9.4 mg/dL Protein, Total 8.7 g/dL Albumin 4.3 g/dL Globulin 4.4 g/dL Bilirubin, Total 0.3 mg/dL ALT (SGPT) 23 U/L AST (SGOT) 27 U/L Alkaline Phosphatase 77 IU/L WBC 5.3 10 3/uL RBC 4.16 10 6/uL HGB 12.5 g/dL HCT 39.8 % MCV 95.7 fl MCH 30.0 pg MCHC 31.4 g/dL RDW 15.1 % Platelet Count 237 10 3/cmm MPV 11.4 fL Neutrophils 3.84 10 3/uL Lymphocytes 1.1 10 3/uL Monocytes 0.3 10 3/uL Eosinophils 0.0 10 3/uL Basophils 0.0 10 3/uL Neutrophil % 71.9 % Lymphocyte % 21.0 % Monocyte % 5.6 % Eosinophil % 0.7 % Basophils % 0.6 % NRBC % 0 % Problem List: 1. 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 Involvement appeared to be limited to a large abdominal mass and a right inguinal lymph node at initial diagnosis in May 2016. 2. She had GERD symptoms and evidence of hiatal hernia by CT scan. 3. Her treatment was complicated by portacath related superior vena cava thrombus. She underwent removal of the Port-A-Cath venous access device, following which she continued anticoagulation with Lovenox, subsequently transitioned to apixaban. Problems Addressed with this Encounter and Plan: 1. 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 Involvement appeared to be limited to a large abdominal mass and the right inguinal lymph node. As such, her disease was stage II, though CT findings also included small right pleural effusion and ascites. At pressentation she had chronic diarrhea, possibly due to involvement in the small bowel, and she was moderately anemic at baseline. She underwent treatment with 5 cycles of bendamustine/Rituxan from May through October 2016. Her restaging PET/CT on 12/20/2016 showed residual 6 cm centimeter mass in the central small bowel, but with minimal FDG activity, consistent with near complete response to therapy. Given those findings, she was then followed on observation/expectant management. During follow-up she had a couple of hospitalizations for acute GI related illnesses, but these resolved with conservative management. The most recent was in September 2018. Overall, she has been doing well clinically. Thus far there has been no evidence of recurrence/progression of the lymphoma. She remains on observation/expectant management. I will see her again in 6 months. 2. Her treatment was complicated by portacath related superior vena cava thrombus. She underwent removal of the Port-A-Cath venous access device, following which she continued anticoagulation with Lovenox, subsequently transitioned to apixaban. During follow-up she has continued anticoagulation with apixaban. Thus far there has been no evidence for any further thromboembolism. Signed By: Eric Palomares M.D. <<Signature on File>>
== END 2021-07-09 13:34 | disposition home or self-care (01) ==
LOC: ONCMED 13:39
PROVIDERS: Visit Provider Internal Medicine Medical Oncology
DX: Z08 Encounter for follow-up examination after completed treatment for malignant neoplasm (principal); Z85.72 Personal history of non-Hodgkin lymphomas; K21.9 Gastro-esophageal reflux disease without esophagitis; K44.9 Diaphragmatic hernia without obstruction or gangrene; Z86.718 Personal history of other venous thrombosis and embolism; Z79.01 Long term (current) use of anticoagulants; Z92.25 Personal history of immunosuppression therapy
CPT/HCPCS: 36415; 80053; 83615; 85025; 99214

== ENCOUNTER 2022-02-11 08:37 | Outpatient (CLI) | payer MEDICARE, OTHER, SELFPAY ==
[2022-02-11] MEDS: iohexol 350 mg/mL 100 mL Btl PO (11:43)
[2022-02-11 11:47] LABS: Blood Urea Nitrogen 14 mg/dL (8-23)
[2022-02-11] MEDS: iohexol 350 mg/mL 100 mL Btl IV (11:57)
--- NOTE | 2022-02-11 13:30 | CTR_ITS ---
PROCEDURE INFORMATION: Exam: CT Chest With Contrast; Diagnostic Exam date and time: 02/11/2022 11:47 AM Age: 81 years old Clinical indication: Condition or disease; Cancer; Other: Lymphoma; Follow-up oncological assessment; Additional info: Lymphoma, [id number] and [id number] TECHNIQUE: Imaging protocol: Diagnostic computed tomography of the chest with contrast. Radiation optimization: All CT scans at this facility use at least one of these dose optimization techniques: automated exposure control; mA and/or kV adjustment per patient size (includes targeted exams where dose is matched to clinical indication); or iterative reconstruction. Contrast material: OMNI 350; Contrast volume: 95 ml; Contrast route: INTRAVENOUS (IV); COMPARISON: CT chest abd pel w con* 01/01/2021 12:34 PM RADIATION DOSE METRICS: Total DLP (mGy-cm): 1027.67 FINDINGS: Lungs: Left lower lobe atelectasis versus minimal infiltrate. Pleural spaces: Trace bilateral pleural effusions, negative for follow-up advised. Heart: Unremarkable. No cardiomegaly. No pericardial effusion. Lymph nodes: Unremarkable. No enlarged lymph nodes. Vasculature: Unremarkable. No aortic aneurysm. Stomach and bowel: Large hiatal hernia with nearly the entire stomach above the diaphragm. Bones/joints: Unremarkable. No acute fracture. Soft tissues: Unremarkable. PROCEDURE INFORMATION: Exam: CT Abdomen And Pelvis With Contrast Exam date and time: 02/11/2022 11:47 AM Age: 81 years old Clinical indication: Condition or disease; Cancer; Other: Lymphoma; Follow-up oncological assessment; Additional info: Lymphoma, [id number] and [id number] TECHNIQUE: Imaging protocol: Computed tomography of the abdomen and pelvis with contrast. Radiation optimization: All CT scans at this facility use at least one of these dose optimization techniques: automated exposure control; mA and/or kV adjustment per patient size (includes targeted exams where dose is matched to clinical indication); or iterative reconstruction. Contrast material: OMNI 350; Contrast volume: 95 ml; Contrast route: INTRAVENOUS (IV); COMPARISON: CT chest abd pel w con* 01/01/2021 12:34 PM RADIATION DOSE METRICS: Total DLP (mGy-cm): 1027.67 FINDINGS: Liver: Several cysts in the left hepatic lobe. Gallbladder and bile ducts: Cholelithiasis. Pancreas: 8 mm pancreatic body cyst again seen similar to prior exam. Spleen: Normal. No splenomegaly. Adrenal glands: Normal. No mass. Kidneys and ureters: Moderate right hydronephrosis again seen similar to prior exam, may be due to a secondary to a chronic ureteropelvic junction of obstruction. Stomach and bowel: Unremarkable. No obstruction. No mucosal thickening. Appendix: No evidence of appendicitis. Intraperitoneal space: Unremarkable. No free air. No significant fluid collection. Vasculature: Unremarkable. No abdominal aortic aneurysm. Lymph nodes: Unremarkable. No enlarged lymph nodes. Urinary bladder: Suspected enhancing 2.6 cm mass in the base of the urinary bladder with a small calcific density along with a 9.8 mm mass along right lateral wall of the urinary bladder, findings are more apparent compared to prior exam, best seen series 5, image 71 and series 5, image 69, consider correlation with direct visualization. Reproductive: Unremarkable as visualized. Bones/joints: Unremarkable. No acute fracture. Soft tissues: Unremarkable. CT/CT chest abd pel w con* IMPRESSION: 1. Negative negative for adenopathy or mass lesion. 2. Left lower lobe atelectasis versus minimal infiltrate. 3. Large hiatal hernia with nearly the entire stomach above the diaphragm. 4. Trace bilateral pleural effusions, negative for follow-up advised. IMPRESSION: 1. Negative for adenopathy. 2. Cholelithiasis. 3. Moderate right hydronephrosis again seen similar to prior exam, may be due to a secondary to a chronic ureteropelvic junction of obstruction. 4. 8 mm pancreatic body cyst again seen similar to prior exam. 5. Suspected enhancing 2.6 cm mass in the base of the urinary bladder with a small calcific density along with a 9.8 mm mass along right lateral wall of the urinary bladder, findings are more apparent compared to prior exam, best seen series 5, image 71 and series 5, image 69, consider correlation with direct visualization. 6. Several cysts in the left hepatic lobe, appear benign.
== END 2022-02-11 08:38 | disposition home or self-care (01) ==
LOC: RAD 08:37
PROVIDERS: Visit Provider Internal Medicine Medical Oncology
DX: C82.13 Follicular lymphoma grade II, intra-abdominal lymph nodes (principal); K80.20 Calculus of gallbladder without cholecystitis without obstruction; Q62.11 Congenital occlusion of ureteropelvic junction; K86.2 Cyst of pancreas; K76.89 Other specified diseases of liver
CPT/HCPCS: 71260; 74177; 82565; 84520

== ENCOUNTER 2022-02-18 14:30 | Oncology outpatient (recurring) (ONCR) | payer MEDICARE, OTHER, SELFPAY ==
[2022-02-11 12:56] LABS: Alanine Aminotransferase 12 U/L (0-33); Albumin Level 3.8 g/dL (3.5-5.2); Alkaline Phosphatase 77 U/L (35-105); Anion Gap 14.9 (5-19); Aspartate Amino Transferase 18 U/L (0-32); Blood Urea Nitrogen 13 mg/dL (8-23); Calcium 9.1 mg/dL (8.5-10.5); Carbon Dioxide 26 mmol/L (22-29); Chloride 103 mmol/L (98-107); Globulin 3.3 g/dL (1.3-4.6); Glucose 90 mg/dL (65-115); Osmolality Calculated 290 mOsm/kg (285-295); Potassium 3.9 mmol/L (3.5-5.1); Sodium 140 mmol/L (136-145); Total Bilirubin 0.3 mg/dL (0.15-1.2); Total Protein 7.1 g/dL (6.6-8.7)
[2022-02-11 13:08] LABS: Basophils % 0.4 %; Eosinophils # 0.1 10^3/uL (0.0-0.8); Eosinophils % 1.1 %; Hematocrit 37.9 % (37.0-47.0); Hemoglobin 11.9 g/dL (11.5-15.3); Lymphocytes # 1.2 10^3/uL (0.8-4.8); Lymphocytes % 26.5 %; Mean Corpuscular HGB Conc 31.4 g/dL (30.0-36.0); Mean Corpuscular Hemoglobin 30.1 pg (28.0-34.0); Mean Corpuscular Volume 95.7 fl (81-99); Mean Platelet Volume 11.7 fL (7.4-10.4); Monocytes # 0.3 10^3/uL (0.2-0.9); Monocytes % 7.1 %; Neutrophils # 2.91 10^3/uL (1.8-7.7); Neutrophils % 64.5 %; Nucleated Red Blood Cells % 0 %; Platelet Count 188 10^3/cmm (130-400); Red Blood Count 3.96 10^6/uL (4.1-5.3); Red Cell Distribution Width 14.9 % (12.1-15.1); White Blood Count 4.5 10^3/uL (4.0-10.0)
[2022-02-13 18:08] LABS: Lactate Dehydrogenase 198 U/L (135-214)
== END 2022-03-03 23:59 | disposition home or self-care (01) ==
PROVIDERS: Visit Provider Internal Medicine Medical Oncology
DX: Z08 Encounter for follow-up examination after completed treatment for malignant neoplasm (principal); Z85.72 Personal history of non-Hodgkin lymphomas; Z92.21 Personal history of antineoplastic chemotherapy; Z92.25 Personal history of immunosuppression therapy; Z23 Encounter for immunization
CPT/HCPCS: 36415; 71260; 74177; 80053; 82565; 83615; 84520; 85025; 90471; 90686; 99213; 99214

== ENCOUNTER → 2022-03-07 09:25 | Outpatient (BNVA) | payer MEDICARE, OTHER, SELFPAY | PROVIDERS: PCP Internal Medicine Medical Oncology; Visit Provider Urology | DX: N32.89 Other specified disorders of bladder (principal) | CPT/HCPCS: 52000; 81003; 99204 ==

== ENCOUNTER 2022-03-12 09:41 | Observation (INO) | payer MEDICARE, OTHER, SELFPAY ==
[2022-03-11 11:13] VITALS: BMI 15.4
[2022-03-12] VITALS (15 sets, daily range): BP systolic 95–159; BP diastolic 49–77; PULSE 49–65; RESP 16–18; TEMP 36.2–36.8; O2SAT 94–99; BMI 18.4
[2022-03-12] MEDS: sodium chloride 0.9% 1,000 ML 30 ML IV (07:21)
--- NOTE | 2022-03-12 07:51 | W.PM.OPSUD ---
Surgery/Procedure H&P Update DATE OF PROCEDURE: March 12, 2022 DATE H&P PERFORMED: 03/07/22 H&P UPDATE INFORMATION: I have reviewed H&P completed within last 30 days, I have examined patient prior to procedure, No changes to prior documentation and H&P is in [facility] EMR on date indicated PREOP DIAGNOSIS: Newly diagnosed bladder cancer PLANNED PROCEDURE: Operation Date: 03/12/22 08:20 Proposed Procedures p 17017 Transurethral Resection Bladder Tumor N32.89(Not Applicable) - Luciano Herrera MD s Cystoscopy(Not Applicable) - Luciano Herrera MD
--- NOTE | 2022-03-12 08:02 | ANES.PREANE2 ---
Pre-Anesthetic Assessment Height/Weight: Height 1.63 m Weight 40.823 kg Temp Pulse Resp BP Pulse Ox O2 Del Method 98.0 F 59 L 18 159/77 99 03/12/22 07:04 03/12/22 07:04 03/12/22 07:04 03/12/22 07:04 03/12/22 07:04 03/12/22 07:05 Preop Diagnosis: Newly diagnosed bladder cancer Operation Date: 03/12/22 08:20 Proposed Procedures p [id number] Transurethral Resection Bladder Tumor N32.89(Not Applicable) - Luciano Herrera MD s Cystoscopy(Not Applicable) - Luciano Herrera MD Familial anesthetic complications: none Was Beta Stanley taken within 24 hours: N/A Was Clonidine taken within 24 hours: N/A Last intake: Intake Last Liquid Date 03/11/22 Last Liquid Time 18:00 Last Solid Date 03/11/22 Last Solid Time 18:00 Social No alcohol and No tobacco Exam alert, oriented x 3, clear to auscultation bilaterally and regular rate & rhythm Airway Submandibular: within normal limits Cervical ROM: within normal limits Mallampati: Class II Dentition: full CV/HEM Anemia lymphoma Anesthetic Plan ASA status: 2 Anesthesia: General Medications/Allergies Home Medications Medication Instructions Recorded Confirmed Last Taken Type acetaminophen 500 mg capsule 500 mg PO Q6H PRN 02/18/22 03/07/22 Unknown History ferrous sulfate 325 mg (65 mg 325 mg PO DAILY 02/18/22 03/07/22 03/09/22 History iron) tablet afrzrfwm-svhy-tmp-folic acid 18 1 tab PO DAILY 02/18/22 03/07/22 Unknown History mg-0.4 mg tablet (One Daily For Women) rivaroxaban 10 mg tablet (Xarelto) 10 mg PO DAILY 02/18/22 03/07/22 03/06/22 History Allergies Allergy/AdvReac Type Severity Reaction Status Date / Time No Known Allergies Allergy Unverified 03/07/22 09:42 Current Medications Generic Name Dose Route Start Last Admin Trade Name Freq PRN Reason Stop Dose Admin Sodium Chloride 1,000 mls @ 30 mls/hr 03/12/22 07:00 03/12/22 07:21 Sodium Chloride 0.9% IV 03/13/22 06:59 30 mls/hr .Q24H NIC Administration PFSH Anesthesia Medical History Follicular lymphoma 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 Surgical History History of lymph node biopsy (05/21/16) Right inguinal lymph node biopsy History of removal of Port-a-Cath Family History Other Cancer Stroke Denies family history of Diabetes CAD (coronary artery disease) Clotting disorder Dementia Hyperlipidemia Psychiatric illness Chronic kidney disease (CKD) Suicide Anesthesia complication Bleeding disorder Lung disease Hypertension Social History Smoking and tobacco status: never smoked Alcohol intake: never Household members: spouse Marital status: Current occupational status: retired History of recent travel: No Data Anesthesia Cardiac Studies: No Data to Display
--- NOTE | 2022-03-12 08:03 | P.OP_ITS ---
Operative Report Date of procedure: March 12, 2022 Pre-op diagnosis: Newly diagnosed bladder cancer Post-op diagnosis: Newly diagnosed bladder cancer Procedure done: Cystoscopy, transurethral section of bladder tumor LARGE Implants: Curtis catheter Specimens removed/disposition: Bladder tumor Pathology: Bladder tumor Surgeon: Sharon Estimated blood loss: Minimal Urine output: Not measured Complications: None Findings: Anesthesia: General Condition: Stable Disposition: PACU Intraoperative findings: * Papillary tumor extending about 3 to half centimeters in total diameter. Involve the right posterior floor lateral to the trigone extending into a diverticulum on the right posterior floor of the bladder wall. * Ureteral orifices status: Uninvolved and resection * Large area fulgurated without resection, suspicious for low-grade papillary tumor right anterolateral bladder wall * 5 distinct areas sampled/resected with SUPER loop: * Left lateral wall papillary tumor * Bladder neck papillary tumor * Suspicious mucosa trigone * Right lateral wall (anterior to diverticulum) * Right lateral wall, edge and into diverticulum Brief History: Mrs. Joyce is a delightful 81-year-old white female who I evaluated recently at the request of Dr. Palomares for newly discovered on CT scan involving her right trigone area and what appeared to be extending into the diverticulum on the posterior right lateral aspect of the wall. Cystoscopy in clinic confirmed this to be a papillary lesion consistent with TCCA. There also appeared to be a few other small spots in the bladder and more tissue than expected extending into the diverticulum when compared with the CT scan findings. Admitted for TURBT. Procedure: After routine preoperative evaluation examination and obtaining of informed consent she was taken to the operating suite on 03/12/2022 where general anesthesia was administered without difficulty after appropriate timeout was performed, SCDs confirmed to be functioning, preoperative antibiotics administered, beta-ana protocol confirmed. Prepped and draped in the usual sterile fashion in dorsolithotomy position paying careful attention to avoiding pressure points. 21 Lithuanian cystoscope with 30 degree lens was introduced into the urethra meatus and advanced into the bladder under videoscopy. Bladder was systematically examined. Findings documented above. 30 and 70 degree lenses were utilized to examine the bladder wall in its entirety. A 25 Lithuanian continuous-flow resectoscope sheath with visual obturator in place was advanced into the bladder without difficulty. The gyrus bipolar system was utilized with super loop for resection and button probe for fulguration. Both orifices were identified and not involved in any of visible tumor or resection therefore. There were 5 distinct areas of papillary lesions were resected. See findings above. The largest volume of papillary tumor began just outside of the diverti culum and extended into the diverticulum itself and it could not be completely resected due to concern for potential perforation. It was aggressively fulgurated though with the button probe though. It appeared cystoscopically that this area was actually invasive as was the largest tumor extending from the neck of the bladder diverticulum into the diverticulum. Resection was taken down to muscle at this area There is also a wide swath of mucosal changes that showed early papillary changes on the right anterolateral aspect of the bladder wall and this was painted with the button probe for fulguration destruction. On final inspection no residual papillary lesions were identified. All chips were out of the bladder and sent according to their location as described above, hemostasis was meticulous. The bladder was drained with a 20 Lithuanian three-way Curtis catheter with 30 cc placed in the balloon. The irrigation port was plugged plugged with a catheter plug in the catheter was placed to dependent drainage. She tolerated procedure well without complications and was awakened in the operating room and returned to the cover room in stable condition PLANS: 1. Admit to observation status on [facility] 2. Mitomycin instillation in the morning 3. Based on the degree of depth of resection and multiple areas I will plan on discharging her with a Curtis catheter in place 4. If there is muscle involvement as I expect there will be, no further resection or treatment of the diverticulum will be planned without more global planning for the bladder itself.
[2022-03-12] MEDS: levofloxacin-dextrose 5 % 500 MG/100 ML PREMIX 100 MG IV (08:17)
--- NOTE | 2022-03-12 12:07 | ECG_ITS ---
[facility] Test Date: 2022-03-12 Pat Name: Rosa Joyce Department: Room: 272 Gender: Female Professor Of Biology: : 1940 Requested By: Luciano Herrera Order Number: [id number] Leonid MD: Chioma Burroughs M.D. Measurements Intervals [place] Rate: 52 P: 69 GA: 159 QRS: 64 QRSD: 128 T: 48 QT: 494 QTc: 462 Interpretive Statements SINUS BRADYCARDIA RIGHT BUNDLE BRANCH BLOCK [120+ ms QRS DURATION, UPRIGHT V1, 40+ ms S IN I/aVL/V4/V5/V6] Compared to ECG 09/03/2018 21:14:07 Sinus rhythm no longer present Electronically Signed On 03-13-2022 11:41:32 COTTON AGENT by Chioma Burroughs M.D. [email or web address] [id number]
[2022-03-13 04:00] VITALS: BP 126/72; PULSE 67; RESP 16; TEMP 36.7; O2SAT 92
--- NOTE | 2022-03-13 05:14 | PC.NURSE ---
Shift Summary: Pt did well this evening, no c/o pain. Catheter draining well with pink, clear urine. Pt tolerating diet and in good spirits. Family at the bedside.
[2022-03-13 05:52] LABS: Basophils % 0.2 %; Eosinophils # 0.1 10^3/uL (0.0-0.8); Eosinophils % 0.8 %; Hematocrit 35.7 % (37.0-47.0); Lymphocytes # 1.2 10^3/uL (0.8-4.8); Lymphocytes % 18.2 %; Mean Corpuscular HGB Conc 30.8 g/dL (30.0-36.0); Mean Corpuscular Hemoglobin 29.6 pg (28.0-34.0); Mean Corpuscular Volume 96.2 fl (81-99); Mean Platelet Volume 10.8 fL (7.4-10.4); Monocytes # 0.5 10^3/uL (0.2-0.9); Monocytes % 8.1 %; Neutrophils # 4.67 10^3/uL (1.8-7.7); Neutrophils % 72.4 %; Nucleated Red Blood Cells % 0 %; Platelet Count 175 10^3/cmm (130-400); Red Blood Count 3.71 10^6/uL (4.1-5.3); Red Cell Distribution Width 15.2 % (12.1-15.1); White Blood Count 6.4 10^3/uL (4.0-10.0)
[2022-03-13 06:19] LABS: Alanine Aminotransferase 12 U/L (0-33); Albumin Level 3.8 g/dL (3.5-5.2); Alkaline Phosphatase 79 U/L (35-105); Anion Gap 10.9 (5-19); Aspartate Amino Transferase 16 U/L (0-32); Blood Urea Nitrogen 17 mg/dL (8-23); Carbon Dioxide 27 mmol/L (22-29); Chloride 106 mmol/L (98-107); Glucose 96 mg/dL (65-115); Osmolality Calculated 291 mOsm/kg (285-295); Potassium 3.9 mmol/L (3.5-5.1); Sodium 140 mmol/L (136-145); Total Bilirubin 0.3 mg/dL (0.15-1.2); Total Protein 6.8 g/dL (6.6-8.7)
--- NOTE | 2022-03-13 07:38 | P.DS_ITS ---
Discharge Providers Date of Admission: 03/12/22 09:41 Date of Discharge: March 13, 2022 Attending Provider at Admission: Luciano Herrera MD Attending Provider at Discharge: Luciano Herrera MD Diagnoses at Discharge Discharge Diagnosis (1) Bladder cancer: Details from hospital stay: TURBT performed. Status: Acute Reason for Visit Reason for Visit: bladder cancer Brief History: Identified on surveillance CT to have a new lesion in the bladder suspicious for TCCA. Outpatient cystoscopy confirmed it. Admitted for TURBT. Hospital Course Hospital Course Admitted on the day of the procedure which went well. She had a larger than expected volume of bladder cancer and some of it did look invasive. It was heavily involved in the right posterior wall bladder diverticulum and not completely resected because of. Postoperatively she did well. The catheter was maintained at discharge. Additional procedure: Mitomycin instillation. Received 40 mg of mitomycin and 40 cc normal saline on postop day #1. Held for about an hour and then drained. Catheter was placed to dependent drainage. Discharged on postop day #1 in stable condition and deemed a good candidate for further convalescence at home. Good review about the intraoperative findings and possible avenues of treatment not yet determined. Physical Exam 2 Narrative: Alert oriented no acute distress HEENT atraumatic normocephalic Neck good range of motion Respiratory unlabored Abdomen bladder nondistended catheter draining clear to pink urine Extremity good range of motion Psychiatric normal mental status Urinary Catheter Management: 3-way Urethral CBI Latex: Cath Placed During This Visit: yes Reason for Continuing Indwelling Catheter: Other Urinary Catheter Date of Insertion: 03/12/22 Urinary Catheter Time of Insertion: 09:29 Discharge Data Studies Completed and Pending Pending at discharge Category Date Time Status Pathology: Surgical [PTH] Routine Pth 03/12/22 09:49 Received Laboratory Results WBC 6.4 10^3/uL (4.0-10.0) 03/13/22 05:39 RBC 3.71 10^6/uL (4.1-5.3) L 03/13/22 05:39 Hgb 11.0 g/dL (11.5-15.3) L 03/13/22 05:39 Hct 35.7 % (37.0-47.0) L 03/13/22 05:39 MCV 96.2 fl (81-99) 03/13/22 05:39 MCH 29.6 pg (28.0-34.0) 03/13/22 05:39 MCHC 30.8 g/dL (30.0-36.0) 03/13/22 05:39 RDW 15.2 % (12.1-15.1) H 03/13/22 05:39 Plt Count 175 10^3/cmm (130-400) 03/13/22 05:39 MPV 10.8 fL (7.4-10.4) H 03/13/22 05:39 Neut % (Auto) 72.4 % 03/13/22 05:39 Lymph % (Auto) 18.2 % 03/13/22 05:39 [place] % (Auto) 8.1 % 03/13/22 05:39 Eos % (Auto) 0.8 % 03/13/22 05:39 Baso % (Auto) 0.2 % 03/13/22 05:39 Neut # (Auto) 4.67 10^3/uL (1.8-7.7) 03/13/22 05:39 Lymph # (Auto) 1.2 10^3/uL (0.8-4.8) 03/13/22 05:39 [place] # (Auto) 0.5 10^3/uL (0.2-0.9) 03/13/22 05:39 Eos # (Auto) 0.1 10^3/uL (0.0-0.8) 03/13/22 05:39 Baso # (Auto) 0.0 10^3/uL (0.0-0.1) 03/13/22 05:39 Nucleated RBC % (auto) 0 % 03/13/22 05:39 Nucleated RBCs # 0.0 /100WBC 03/13/22 05:39 Sodium 140 mmol/L (136-145) 03/13/22 05:39 Potassium 3.9 mmol/L (3.5-5.1) 03/13/22 05:39 Chloride 106 mmol/L (98-107) 03/13/22 05:39 Carbon Dioxide 27 mmol/L (22-29) 03/13/22 05:39 Anion Gap 10.9 (5-19) 03/13/22 05:39 BUN 17 mg/dL (8-23) 03/13/22 05:39 Creatinine 0.8 mg/dL (0.5-0.9) 03/13/22 05:39 GFR Calculation Not Reportable 03/13/22 05:39 Glucose 96 mg/dL (65-115) 03/13/22 05:39 Calculated Osmolality 291 mOsm/kg (285-295) 03/13/22 05:39 Calcium 9.0 mg/dL (8.5-10.5) 03/13/22 05:39 Total Bilirubin 0.3 mg/dL (0.15-1.2) 03/13/22 05:39 AST 16 U/L (0-32) 03/13/22 05:39 ALT 12 U/L (0-33) 03/13/22 05:39 Alkaline Phosphatase 79 U/L (35-105) 03/13/22 05:39 Total Protein 6.8 g/dL (6.6-8.7) 03/13/22 05:39 Albumin 3.8 g/dL (3.5-5.2) 03/13/22 05:39 Globulin 3.0 g/dL (1.3-4.6) 03/13/22 05:39 Vitals Last Vital Signs Temp 98.1 F 03/13/22 04:00 Pulse 67 03/13/22 04:00 Resp 16 03/13/22 04:00 BP 126/72 03/13/22 04:00 Pulse Ox 92 03/13/22 04:00 O2 Del Method 03/13/22 04:00 Discharge Plan Discharge Patient Disposition: Home Condition: Good Prescriptions: Continued acetaminophen 500 mg capsule 500 mg PO Q6H PRN One Daily For Women 18-0.4 mg tablet 1 tab PO DAILY ferrous sulfate 325 mg (65 mg iron) tablet 325 mg PO DAILY Held Xarelto 10 mg tablet 10 mg PO DAILY Hold Instructions: Resume on 03/19/22. Rx Instructions: for 35 days Discharge Orders: Discharge Order (Routine); Ordered 03/13/22 Ordered By: Luciano Herrera Referrals: Luciano Herrera MD [Physician] - 03/19/22 (Voiding trial) Discharge Diet: Regular Discharge Activity: Limit activity as instructed Patient Instructions: Opioid Safety Activity Restrictions/Additional Instructions: 1. We will leave the catheter in for about a week and conduct a voiding trial in the office on follow-up. 2. It is a good thing to drink a lot of fluids to try to keep urine as clear as possible. But it is normal to see some blood in the urine and as long as the catheter is draining appropriately that would not be a problem. 3. There are a lot of decisions still pending. The first step is to get the pathology report back and make decisions based on that objective information. I do expect that she will have some consults soon to help us in that pursuit. 4. Please call the hospital catalytic case operator who can reach me anytime if have any questions or concerns. 5. Avoid lifting anything >10 pounds until you have recovered Discharge Attestations Time Spent in Discharge Care*: less than 30 min Quality Metrics Clinical Quality Measures [ No reported AMI, CVA or VTE this stay] Coding Level of Care Code Acute [facility] note Diagnoses Bladder cancer C67.9
[2022-03-13 08:00] VITALS: BP 128/75; PULSE 61; RESP 16; TEMP 36.7; O2SAT 95
[2022-03-13 08:37] VITALS: BP 128/75; PULSE 61; RESP 16; TEMP 36.7; O2SAT 95
--- NOTE | 2022-03-13 10:53 | PC.CHAP ---
Pastoral Care Encounter/Spiritual Assessment Type of Contact [] Declined oracle manager visit [] Patient/Family/Request visit [] Outpatient visit [] Follow-up visit [] Physician referral [] Code/Alert [x] Routine visit [] Staff referral [] Actively dying [] Patient sleeping [] Family support [] [] Out of room [] Palliative care [] [x] Receiving care in room [] Pre-surgical visit [] Trauma [x] Long length of stay [] ICU visit [] Other: Relational/Emotional Strength [x] Patient feels connected with others/family/visitors/staff [] Distress [] Loneliness/isolation [] Abandonment Spirituality of Patient [x] Person of Komal [] Attends Nondenominational of their Komal [x] Believes in Prayer [] Reads Bible or Amish materials [] There are Spiritual issues to be addressed Milling Machine Operator Interventions [x] Prayer [x] Active listening [x] Non-anxious presence [x] Spiritual/emotional support [] Crisis/trauma care [x] Spiritual counseling [] Bereavement support [] Provided bereavement packet [] Provided Bible/devotional materials [] Provided toy/stuffed animal, coloring book to patient or family member [] Provided Communion [] Anointing/Sutter [] Salvation [x] Completed spiritual assessment [] Other: Impact on Illness or Injury [] Angry [] Fearful [x] Anxious [] Often cries [] Exhaustion [x] Unable to work [] Unable to attend tenriism [] Unable to walk/stand [] Unable to read [] Unable to drive [] Unable to eat/drink [] Unable to sleep [] Unable to be with family [] Patient intubated [] Other: Summary senior blader cancer going home for health care negative in some way but knows the out come well go home Time spent with patient 10 mins
== END 2022-03-13 10:55 | disposition home or self-care (01) ==
LOC: MEDSURG 09:42
PROVIDERS: Admitting Provider Urology; Visit Provider Urology
PROC: 0TBB8ZZ Excision of Bladder, Via Natural or Artificial Opening Endoscopic (ICD-10-PCS; CPT 52240; principal; 2022-03-12 08:10)
PROC: 0TJB8ZZ Inspection of Bladder, Via Natural or Artificial Opening Endoscopic (ICD-10-PCS; CPT 52000; 2022-03-12 08:10)
DX: C67.9 Malignant neoplasm of bladder, unspecified (principal)
CPT/HCPCS: 52240; 51700; 51720; 80053; 85025; 88307; 93005; 96372; G0378; J1100; J1956; J2405; J2704; J2710; J3010; J3490; J7030; J9280; P9047

== ENCOUNTER → 2022-03-19 13:09 | Outpatient (BNVA) | payer MEDICARE, OTHER, SELFPAY | PROVIDERS: PCP Internal Medicine Medical Oncology; Visit Provider Urology | DX: C67.9 Malignant neoplasm of bladder, unspecified (principal) | CPT/HCPCS: 51700; 81003; 99213 ==

== ENCOUNTER 2022-03-31 12:53 | Oncology outpatient (recurring) (ONCR) | payer MEDICARE, OTHER, SELFPAY ==
--- NOTE | 2022-03-20 14:08 | N.ONRAD NP_ITS ---
Radiation Oncology Consultation Patient Name: Rosa Joyce Date of : 1940 Date of Service: 03/20/2022 Attending Physician: Carl Gonzales M.D. Rosa Joyce was seen in consultation this afternoon at the request of Eric Palmoares M.D. for consideration of bladder preservation radiotherapy in the management of a recently diagnosed bladder cancer. A surveillance thoracoabdominopelvic CT scan (independently reviewed in Synapse) ordered on February 11, 2022 for the management of a follicular lymphoma identified 2.6 cm enhancing mass in the base of the bladder and a 9.8 mm lesion in the right lateral aspect of the bladder wall. There was no adenopathy worrisome for current lymphoma. A cystoscopy with transurethral resection of the bladder tumor was performed by Luciano Herrera M.D. on March 12, 2022. Intraoperative findings included a papillary tumor measuring 3 .5 cm involving the right postero-lateral bladder floor that involved the trigone and extended into a diverticulum, a left lateral wall papillary tumor, a bladder neck papillary tumor, and an irregular mucosa of the trigone. Biopsies of the bladder neck, right and left lateral bladder wall, and trigone diagnosed a high-grade urothelial carcinoma. Detrusor muscle involvement was reported in the right lateral bladder wall specimen. She was referred for bladder preservation treatment options. I discussed The [place] [employer] on Cancer Staging for bladder cancer and specifically the patient's clinical stage II (T2aN0 vs T2bN0) corresponding to her disease. I also reviewed the National Comprehensive Cancer Network Guidelines recommending neoadjuvant chemotherapy followed by radical cystectomy or organ preservation with concurrent chemoradiotherapy (both medical treatment options are category 1). Organ preservation was predicated on the RTOG 89???03 Trial that evaluated concurrent chemoradiotherapy with cisplatin with or without induction MCV and the UM1145 Study that compared (hypofractionation or standard fractionation) with or without synchronous chemotherapy (5-FU and Mitomycin-C). The RTOG study revealed equivalent overall survival and the YE8832 trial confirmed improve local regional control with concurrent chemoradiotherapy. If organ preservation is pursued, I would endorse hypofractionated radiotherapy. Prior to beginning treatment, a planning CT scan will be acquired to delineate the clinical target volume. The patient's medical treatment plan has been discussed with Eric Palomares M.D. Signed by: Dr. Carl Gonzales 03/20/2022 2:07:15 PM
--- NOTE | 2022-03-31 | CT_ITS ---
Radiation Therapy Planning CT images; total exam DLP: 397.64 mGy-cm MTDD
== END 2022-04-02 23:59 | disposition home or self-care (01) ==
PROVIDERS: Absent Provider Radiology Radiation Oncology; Visit Provider Radiology Radiation Oncology
DX: Z08 Encounter for follow-up examination after completed treatment for malignant neoplasm (principal); Z85.72 Personal history of non-Hodgkin lymphomas; Z92.21 Personal history of antineoplastic chemotherapy; Z92.25 Personal history of immunosuppression therapy; Z23 Encounter for immunization; C82.13 Follicular lymphoma grade II, intra-abdominal lymph nodes; K44.9 Diaphragmatic hernia without obstruction or gangrene
CPT/HCPCS: 77300; 77301; 77334; 77338; 77470; 99214; 99215

== ENCOUNTER → 2022-04-02 13:14 | Day surgery (SDC) | payer MEDICARE, OTHER, SELFPAY ==
[2022-04-02 13:50] VITALS: BP 164/83; PULSE 61; RESP 18; TEMP 36.7; O2SAT 97
--- NOTE | 2022-04-02 16:39 | PC.NURSE ---
Pt to GI infusions for PICC placement. Access obtained by this nurse twice, but upon trying to thread catheter, the catheter would not go above the axilla. Fay Riley RN notified and also attempted insertion. A total of 6 sticks were made without success. Pt requested to stop at this time. Dr. Palomares notified of failed attempt at PICC line.
== END ==
PROVIDERS: PCP Internal Medicine Medical Oncology; Visit Provider Internal Medicine Medical Oncology
DX: C67.8 Malignant neoplasm of overlapping sites of bladder (principal)
CPT/HCPCS: 36569

== ENCOUNTER 2022-05-02 08:01 | Oncology outpatient (recurring) (ONCR) | payer MEDICARE, OTHER, SELFPAY ==
[2022-04-03 09:37] LABS: Basophils % 0.5 %; Eosinophils # 0.1 10^3/uL (0.0-0.8); Eosinophils % 2.4 %; Hematocrit 38.8 % (37.0-47.0); Lymphocytes # 1.1 10^3/uL (0.8-4.8); Lymphocytes % 28.8 %; Mean Corpuscular HGB Conc 30.9 g/dL (30.0-36.0); Mean Corpuscular Hemoglobin 29.6 pg (28.0-34.0); Mean Corpuscular Volume 95.6 fl (81-99); Mean Platelet Volume 11.1 fL (7.4-10.4); Monocytes # 0.3 10^3/uL (0.2-0.9); Monocytes % 6.9 %; Neutrophils # 2.31 10^3/uL (1.8-7.7); Neutrophils % 61.1 %; Nucleated Red Blood Cells % 0 %; Platelet Count 217 10^3/cmm (130-400); Red Blood Count 4.06 10^6/uL (4.1-5.3); Red Cell Distribution Width 14.9 % (12.1-15.1); White Blood Count 3.8 10^3/uL (4.0-10.0)
[2022-04-03 09:57] LABS: Alanine Aminotransferase 13 U/L (0-33); Albumin Level 3.7 g/dL (3.5-5.2); Alkaline Phosphatase 82 U/L (35-105); Anion Gap 14.7 (5-19); Aspartate Amino Transferase 18 U/L (0-32); Blood Urea Nitrogen 12 mg/dL (8-23); Calcium 8.9 mg/dL (8.5-10.5); Carbon Dioxide 27 mmol/L (22-29); Chloride 101 mmol/L (98-107); Globulin 3.9 g/dL (1.3-4.6); Glucose 93 mg/dL (65-115); Osmolality Calculated 287 mOsm/kg (285-295); Potassium 3.7 mmol/L (3.5-5.1); Sodium 139 mmol/L (136-145); Total Bilirubin 0.3 mg/dL (0.15-1.2); Total Protein 7.6 g/dL (6.6-8.7)
[2022-04-03 10:12] LABS: Slide Review Slide Review Perform
[2022-04-03] MEDS: ondansetron 2 mg/ML SDV 2 mL 8 MG IVP (10:40)
[2022-04-03] MEDS: sodium chloride 0.9% 250 ML 75 ML IV (10:40)
[2022-04-03] MEDS: mitoMYcin 20 mg SDV 14 MG IVP (10:57)
[2022-04-03 11:31] VITALS: BP 139/70; PULSE 56; RESP 16; TEMP 36.9; O2SAT 96
[2022-04-07 08:12] VITALS: BP 151/76; PULSE 62; RESP 16; TEMP 36.9; O2SAT 100
[2022-04-07 08:21] LABS: Basophils % 0.2 %; Eosinophils # 0.1 10^3/uL (0.0-0.8); Eosinophils % 1.8 %; Hematocrit 37.3 % (37.0-47.0); Hemoglobin 11.5 g/dL (11.5-15.3); Lymphocytes # 0.8 10^3/uL (0.8-4.8); Lymphocytes % 14.3 %; Mean Corpuscular HGB Conc 30.8 g/dL (30.0-36.0); Mean Corpuscular Hemoglobin 29.6 pg (28.0-34.0); Mean Corpuscular Volume 95.9 fl (81-99); Mean Platelet Volume 10.9 fL (7.4-10.4); Monocytes # 0.1 10^3/uL (0.2-0.9); Monocytes % 2.4 %; Neutrophils # 4.43 10^3/uL (1.8-7.7); Neutrophils % 80.9 %; Nucleated Red Blood Cells % 0 %; Platelet Count 247 10^3/cmm (130-400); Red Blood Count 3.89 10^6/uL (4.1-5.3); Red Cell Distribution Width 14.8 % (12.1-15.1); White Blood Count 5.5 10^3/uL (4.0-10.0)
[2022-04-07 08:42] LABS: Alanine Aminotransferase 11 U/L (0-33); Albumin Level 3.5 g/dL (3.5-5.2); Alkaline Phosphatase 79 U/L (35-105); Anion Gap 10.7 (5-19); Aspartate Amino Transferase 16 U/L (0-32); Blood Urea Nitrogen 16 mg/dL (8-23); Carbon Dioxide 27 mmol/L (22-29); Chloride 102 mmol/L (98-107); Globulin 3.7 g/dL (1.3-4.6); Glucose 93 mg/dL (65-115); Osmolality Calculated 283 mOsm/kg (285-295); Potassium 3.7 mmol/L (3.5-5.1); Sodium 136 mmol/L (136-145); Total Bilirubin 0.3 mg/dL (0.15-1.2); Total Protein 7.2 g/dL (6.6-8.7)
[2022-04-14 08:10] LABS: Basophils % 0.3 %; Eosinophils # 0.1 10^3/uL (0.0-0.8); Eosinophils % 2.5 %; Hematocrit 35.1 % (37.0-47.0); Hemoglobin 10.9 g/dL (11.5-15.3); Lymphocytes # 0.6 10^3/uL (0.8-4.8); Lymphocytes % 17.5 %; Mean Corpuscular HGB Conc 31.1 g/dL (30.0-36.0); Mean Corpuscular Hemoglobin 29.8 pg (28.0-34.0); Mean Corpuscular Volume 95.9 fl (81-99); Mean Platelet Volume 10.8 fL (7.4-10.4); Monocytes # 0.3 10^3/uL (0.2-0.9); Monocytes % 8.6 %; Neutrophils # 2.54 10^3/uL (1.8-7.7); Neutrophils % 70.5 %; Nucleated Red Blood Cells % 0 %; Platelet Count 150 10^3/cmm (130-400); Red Blood Count 3.66 10^6/uL (4.1-5.3); Red Cell Distribution Width 14.6 % (12.1-15.1); White Blood Count 3.6 10^3/uL (4.0-10.0)
[2022-04-14 08:25] LABS: Alanine Aminotransferase 12 U/L (0-33); Albumin Level 3.6 g/dL (3.5-5.2); Alkaline Phosphatase 71 U/L (35-105); Anion Gap 12.6 (5-19); Blood Urea Nitrogen 11 mg/dL (8-23); Calcium 8.7 mg/dL (8.5-10.5); Carbon Dioxide 31 mmol/L (22-29); Chloride 97 mmol/L (98-107); Globulin 3.7 g/dL (1.3-4.6); Glucose 103 mg/dL (65-115); Osmolality Calculated 284 mOsm/kg (285-295); Potassium 3.6 mmol/L (3.5-5.1); Sodium 137 mmol/L (136-145); Total Bilirubin 0.2 mg/dL (0.15-1.2); Total Protein 7.3 g/dL (6.6-8.7)
[2022-04-14 08:33] LABS: Slide Review Slide Review Perform
[2022-04-14 08:34] LABS: Aspartate Amino Transferase 20 U/L (0-32)
--- NOTE | 2022-04-14 09:06 | ONCRAD TMN_ITS ---
Radiation Oncology Treatment Management Note Patient Name: Rosa Joyce Date of : 1940 Date of Service: 04/14/2022 Attending Physician: Carl Gonzales M.D. Rosa Joyce is an 81 year old white female diagnosed with a clinical stage II (T2aN0 vs T2bN0) bladder cancer A surveillance thoracoabdominopelvic CT scan ordered on February 11, 2022 for the management of a follicular lymphoma identified 2.6 cm enhancing mass in the base of the bladder and a 9.8 mm lesion in the right lateral aspect of the bladder wall. There was no adenopathy worrisome for current lymphoma. A cystoscopy with transurethral resection of the bladder tumor was performed by Luciano Herrera M.D. on March 12, 2022. Intraoperative findings included a papillary tumor measuring 3 .5 cm involving the right postero-lateral bladder floor that involved the trigone and extended into a diverticulum, a left lateral wall papillary tumor, a bladder neck papillary tumor, and an irregular mucosa of the trigone. Biopsies of the bladder neck, right and left lateral bladder wall, and trigone diagnosed a high-grade urothelial carcinoma. Detrusor muscle involvement was reported in the right lateral bladder wall specimen. The patient has received 22 Gy of a prescribed 55 Gy to the bladder with an intensity modulated radiotherapy plan utilizing a step and shoot treatment technique. She has been prescribed chemotherapy consisting of Mitomycin (12 mg/m2) for 2 cycles (every 4 weeks). and daily Xeloda (825 mg/m2). Upon review of systems, she denied any gastrointestinal or genitourinary complaints related to radiotherapy. On physical examination, the patient weighed 95 lbs. Her temperature was 98.1 ???F and the blood pressure was 151/72 mmHg. The pulse was 72 bpm and her respiratory rate was 16. Continue bladder radiotherapy as prescribed. Signed by: Dr. Carl Gonzales 04/14/2022 9:05:00 AM
--- NOTE | 2022-04-21 09:08 | ONCRAD TMN_ITS ---
Radiation Oncology Treatment Management Note Patient Name: Rosa Joyce Date of : 1940 Date of Service: 04/21/2022 Attending Physician: Carl Gonzales M.D. Rosa Joyce is an 81 year old white female diagnosed with a clinical stage II (T2aN0 vs T2bN0) bladder cancer A surveillance thoracoabdominopelvic CT scan ordered on February 11, 2022 for the management of a follicular lymphoma identified 2.6 cm enhancing mass in the base of the bladder and a 9.8 mm lesion in the right lateral aspect of the bladder wall. There was no adenopathy worrisome for current lymphoma. A cystoscopy with transurethral resection of the bladder tumor was performed by Luciano Herrera M.D. on March 12, 2022. Intraoperative findings included a papillary tumor measuring 3 .5 cm involving the right postero-lateral bladder floor that involved the trigone and extended into a diverticulum, a left lateral wall papillary tumor, a bladder neck papillary tumor, and an irregular mucosa of the trigone. Biopsies of the bladder neck, right and left lateral bladder wall, and trigone diagnosed a high-grade urothelial carcinoma. Detrusor muscle involvement was reported in the right lateral bladder wall specimen. The patient has received 35.75 Gy of a prescribed 55 Gy to the bladder with an intensity modulated radiotherapy plan utilizing a step and shoot treatment technique. She has been prescribed chemotherapy consisting of Mitomycin (12 mg/m2) for 2 cycles (every 4 weeks). and daily Xeloda (825 mg/m2). Upon review of systems, she denied any complaints related to radiotherapy. On physical examination, the patient weighed 93 lbs. Her temperature was 98.3 ???F and the blood pressure was 153/84 mmHg. The pulse was 71 bpm and her respiratory rate was 16. Continue bladder radiotherapy as planned. Signed by: Dr. Carl Gonzales 04/21/2022 9:06:33 AM
[2022-04-21 09:43] LABS: Basophils % 0.3 %; Eosinophils # 0.1 10^3/uL (0.0-0.8); Eosinophils % 1.4 %; Hematocrit 34.9 % (37.0-47.0); Hemoglobin 10.8 g/dL (11.5-15.3); Lymphocytes # 0.4 10^3/uL (0.8-4.8); Lymphocytes % 6.5 %; Mean Corpuscular HGB Conc 30.9 g/dL (30.0-36.0); Mean Corpuscular Hemoglobin 29.5 pg (28.0-34.0); Mean Corpuscular Volume 95.4 fl (81-99); Mean Platelet Volume 10.8 fL (7.4-10.4); Monocytes # 0.5 10^3/uL (0.2-0.9); Monocytes % 8.4 %; Neutrophils # 5.26 10^3/uL (1.8-7.7); Neutrophils % 83.1 %; Nucleated Red Blood Cells % 0 %; Platelet Count 97 10^3/cmm (130-400); Red Blood Count 3.66 10^6/uL (4.1-5.3); Red Cell Distribution Width 14.6 % (12.1-15.1); White Blood Count 6.3 10^3/uL (4.0-10.0)
[2022-04-21 10:09] LABS: Alanine Aminotransferase 10 U/L (0-33); Albumin Level 3.4 g/dL (3.5-5.2); Alkaline Phosphatase 77 U/L (35-105); Anion Gap 14.7 (5-19); Aspartate Amino Transferase 17 U/L (0-32); Blood Urea Nitrogen 11 mg/dL (8-23); Calcium 8.8 mg/dL (8.5-10.5); Carbon Dioxide 25 mmol/L (22-29); Chloride 105 mmol/L (98-107); Globulin 3.9 g/dL (1.3-4.6); Glucose 104 mg/dL (65-115); Osmolality Calculated 292 mOsm/kg (285-295); Potassium 3.7 mmol/L (3.5-5.1); Sodium 141 mmol/L (136-145); Total Bilirubin 0.3 mg/dL (0.15-1.2); Total Protein 7.3 g/dL (6.6-8.7)
--- NOTE | 2022-04-29 10:45 | ONCRAD TMN_ITS ---
Radiation Oncology Weekly Treatment Management Patient: Isiah Snyder MR#: [id number] : 1940> Attending Physician: Dr. 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 ID: PTV, Energy: 6X, Dose/Fx (cGy): 275, #Fx: , Dose Correction (cGy): 0, Total Dose (cGy): 4,400, Start Date: 04/03/2022, Elapsed Days: 26 Reason for visit: The patient is being seen today as part of her regularly scheduled weekly on treatment visits to assess for acute toxicities from radiotherapy. Review of Systems: No bladder complaints. She empties well. She has experienced diarrhea. She has had benefit from Imodium A-D but is still experiencing loose stools. We discussed diet and also the use of the Imodium A-D, particularly before meals, as meals tend to precipitate episodes of diarrhea. She has no skin complaints in the treatment area. She has had a cough productive of yellowish sputum. No fever or chills. Vital Signs: Performed on 04/29/2022 8:38 AM BMI - 16.135 kg/m2 (low), Height - 64 in, Weight - 94 lbs, Temperature - 98 f, Pulse - 82 /min, Respiration - 18 /min, O2 Sat - 98 %, Pain - 0, Fatigue - 0 and BP - 148/ 74 mm(hg)(high/). Physical Exam: Afebrile. Lungs clear except for isolated rhonchi over the right upper lobe. No rales or wheezes. Heart rhythm regular without murmur or gallop. She has mild erythema and the treatment volume over the lower pelvis. Imaging: Radiation therapy imaging related to accurate target localization (i.e. KV, MV and CBCT) was reviewed. Appropriate changes, if any, were made to ensure treatment accuracy. Plan: Continue treatment per plan. She will let us know if she has any fever or worsening of the cough and sputum production. She is scheduled for chemotherapy tomorrow and we will check on her WBC and differential. Discussed that if Imodium A-D does not work satisfactorily that we can prescribe Lomotil. No treatment needed for skin reaction at this time. Signed by: Dr. Percy Cardenas 04/29/2022 10:43:25 AM
== END 2022-05-03 23:59 | disposition home or self-care (01) ==
PROVIDERS: Internal Medicine Medical Oncology; Visit Provider Specialist
DX: C67.8 Malignant neoplasm of overlapping sites of bladder (principal); Z51.0 Encounter for antineoplastic radiation therapy
CPT/HCPCS: 36415; 77014; 77336; 77386; 80053; 85025; 96367; 96375; 96409; 99024; 99214; J2405; J7050; J9280

== ENCOUNTER → 2022-05-23 10:15 | Outpatient (BNVA) | payer MEDICARE, OTHER, SELFPAY | PROVIDERS: PCP Internal Medicine Medical Oncology; Visit Provider Urology | DX: N32.89 Other specified disorders of bladder (principal) | CPT/HCPCS: 52000; 81003 ==

== ENCOUNTER 2022-05-29 14:30 | Oncology outpatient (recurring) (ONCR) | payer MEDICARE, OTHER, SELFPAY ==
--- NOTE | 2022-05-06 09:21 | N.ONRD TS_ITS ---
Radiation OncologyTreatment Summary Patient Name: Rosa Joyce Date of : 1940 Date of Service: 05/06/2022 Attending Physician: Carl Gonzales M.D. Rosa Joyce has completed bladder-preservation radiotherapy for the management of a diagnosed with a clinical stage II (T2aN0 vs T2bN0) bladder cancer A surveillance thoracoabdominopelvic CT scan ordered on February 11, 2022 for the management of a follicular lymphoma identified 2.6 cm enhancing mass in the base of the bladder and a 9.8 mm lesion in the right lateral aspect of the bladder wall. There was no adenopathy worrisome for current lymphoma. A cystoscopy with transurethral resection of the bladder tumor was performed by Luciano Herrera M.D. on March 12, 2022. Intraoperative findings included a papillary tumor measuring 3 .5 cm involving the right postero-lateral bladder floor that involved the trigone and extended into a diverticulum, a left lateral wall papillary tumor, a bladder neck papillary tumor, and an irregular mucosa of the trigone. Biopsies of the bladder neck, right and left lateral bladder wall, and trigone diagnosed a high-grade urothelial carcinoma. Detrusor muscle involvement was reported in the right lateral bladder wall specimen. Pelvic radiation therapy was delivered between the dates of April 03, 2022 through May 06, 2021. A prescribed dose of 55 Gy was delivered in 20 fractions encompassing 34 elapsed days. She was prescribed chemotherapy consisting of Mitomycin (12 mg/m2) for 1 cycle and daily Xeloda (825 mg/m2) between the dates of April 03, 2022 through May 06, 2021. The bladder was treated utilizing an intensity modulated radiotherapy plan with a step and shoot treatment technique. The plan arranged seven gantry angles (0???, 41???, 82???, 123???, 237???, 278???, and 319???) replicating an arc. The collimator rotation was 0???. The field sizes spanned between 14.1 cm x 9 cm to 15.6 cm x 9 cm. The SSDs measured a minimum of 81.9 cm to a maximum of 91.1 cm. The ports delivered 193 MU, 182 MU, 144 MU, 140 MU, 137 MU, 169 MU, and 242 MU corresponding to the gantry angles described. All treatments were performed with the Refresh Body linear accelerator and an isocentric technique. Low-energy photons were prescribed. The dose was calculated by Anisotropic Analytic Algorithm with the plan normalized to deliver 100% of the prescription dose to 95% of the planning target volume. Signed by: Dr. Carl Gonzales 05/06/2022 9:19:30 AM
[2022-05-29] MEDS: iohexol 350 mg/mL 500 mL Btl (per mL) IV (13:04)
[2022-05-29] MEDS: iohexol 350 mg/mL 500 mL Btl (per mL) PO (13:05)
--- NOTE | 2022-05-29 14:30 | CT_ITS ---
WS: [id number] CT CHEST, ABDOMEN AND PELVIS WITH CONTRAST HISTORY: post chemo/RT, history of lymphoma TECHNIQUE: Contiguous 5 mm axial imaging performed through the chest, abdomen and pelvis with IV cont rast, oral contrast has been provided. Coronal and sagittal reformats chest. Coronal and sagittal ref ormats through the abdomen and pelvis. All CT scans at [facility] use at least one of these d ose optimization techniques: automated exposure control; mA and/or kV adjustment per patient size (in cludes targeted exams where dose is matched to clinical indication); or iterative reconstruction. CONTRAST: Omnipaque 350; 95 mL IV. DLP: 410.42 mGy-cm. COMPARISON: 02/11/[address]: Compressive atelectasis at the LEFT lung base due to the intrathoracic stomach. No pulmonar y mass or nodules. Small layering RIGHT pleural effusion has increased slightly since the prior study . No new or increasing mediastinal or hilar lymph nodes. No axillary adenopathy. Moderate atheroscler osis aorta and ectasia. Normal sized pulmonary arteries. Moderate cardiomegaly. Abdomen CT: Several small hepatic cysts are reidentified. No enlarging cyst or solid mass. Normal por rosemarie vein. Cholelithiasis without acute cholecystitis. Normal size spleen. Stable 6 mm cyst body of th e pancreas. There may be a very small and additional cyst in the tail of the pancreas. Pancreatic alaina t is 2 mm. No adrenal mass. Atherosclerosis aorta. Long-term RIGHT hydronephrosis. No mass within eit her kidney. Stomach is intrathoracic. No small bowel obstruction. No colon obstruction. The appendix is normal. V ike tortuous overlapping loops of the GI tract. Pelvic CT: Well-distended urinary bladder. Previously described abnormality in the bladder is no long er present. There is mild bladder wall thickening and is slight increased enhancement in the RIGHT po sterior lateral bladder at the site of the previously described tumor which may indicate residual or recurrence. Uterus is atrophic. No free fluid or adenopathy in the pelvis. No inguinal enlarged lymph nodes.0 Degenerative thoracolumbar scoliosis. No osteoblastic or osteolytic lesions. CT/CT chest abdpel w/*[id number] IMPRESSION: 1. No lymphadenopathy identified throughout the chest, abdomen or pelvis. 2. 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 3. Recently described mass in the RIGHT lateral urinary bladder is no longer p resent. There is mild increased enhancement persisting at the tumor resection s ite which may represent recurrence or residual. 4. Small RIGHT pleural effusion has slightly increased in size. 5. Cardiomegaly. 6. Chronic RIGHT hydronephrosis.
== END 2022-06-03 23:59 | disposition home or self-care (01) ==
LOC: ONCMED 06-04 12:13
PROVIDERS: Visit Provider Radiology Radiation Oncology
DX: C67.8 Malignant neoplasm of overlapping sites of bladder (principal); Z51.0 Encounter for antineoplastic radiation therapy; Z79.631 Long term (current) use of antimetabolite agent; R05.9 Cough, unspecified; R06.02 Shortness of breath; R06.2 Wheezing; Z79.899 Other long term (current) drug therapy
CPT/HCPCS: 71260; 74177; 77014; 77336; 77386; 77427; Q9967

== ENCOUNTER 2022-06-18 09:54 | Oncology outpatient (recurring) (ONCR) | payer MEDICARE, OTHER, SELFPAY ==
[2022-06-18 10:37] LABS: Basophils % 0.2 %; Eosinophils % 0.7 %; Hematocrit 35.7 % (37.0-47.0); Hemoglobin 10.8 g/dL (11.5-15.3); Lymphocytes # 0.7 10^3/uL (0.8-4.8); Lymphocytes % 17.6 %; Mean Corpuscular HGB Conc 30.3 g/dL (30.0-36.0); Mean Corpuscular Hemoglobin 30.6 pg (28.0-34.0); Mean Corpuscular Volume 101.1 fl (81-99); Mean Platelet Volume 11.1 fL (7.4-10.4); Monocytes # 0.4 10^3/uL (0.2-0.9); Monocytes % 8.8 %; Neutrophils # 3.04 10^3/uL (1.8-7.7); Neutrophils % 72.5 %; Nucleated Red Blood Cells % 0 %; Platelet Count 192 10^3/cmm (130-400); Red Blood Count 3.53 10^6/uL (4.1-5.3); Red Cell Distribution Width 19.7 % (12.1-15.1); White Blood Count 4.2 10^3/uL (4.0-10.0)
--- NOTE | 2022-06-18 10:53 | ONCRAD EPV_ITS ---
Radiation Oncology Follow-Up Note Patient Name: Rosa Joyce Date of : 1940 Date of Service: 06/18/2022 Attending Physician: Carl Gonzales M.D. Rosa Joyce returned to my office this morning for routinely scheduled follow-up appointment. She completed pelvic radiotherapy in May for the management of a clinical stage II (T2aN0 vs T2bN0) bladder cancer A surveillance thoracoabdominopelvic CT scan ordered on February 11, 2022 for the management of a follicular lymphoma identified 2.6 cm enhancing mass in the base of the bladder and a 9.8 mm lesion in the right lateral aspect of the bladder wall. There was no adenopathy worrisome for current lymphoma. A cystoscopy with transurethral resection of the bladder tumor was performed by Luciano Herrera M.D. on March 12, 2022. Intraoperative findings included a papillary tumor measuring 3 .5 cm involving the right postero-lateral bladder floor that involved the trigone and extended into a diverticulum, a left lateral wall papillary tumor, a bladder neck papillary tumor, and an irregular mucosa of the trigone. Biopsies of the bladder neck, right and left lateral bladder wall, and trigone diagnosed a high-grade urothelial carcinoma. Detrusor muscle involvement was reported in the right lateral bladder wall specimen. Pelvic radiation therapy was delivered between the dates of April 03, 2022 through May 06, 2021. A prescribed dose of 55 Gy was delivered in 20 fractions encompassing 34 elapsed days. She was prescribed chemotherapy consisting of Mitomycin (12 mg/m2) for 1 cycle and daily Xeloda (825 mg/m2) between the dates of April 03, 2022 through May 06, 2021. A cystoscopy was performed on May 24, 2022. There was erythematous changes described without findings suspicious for recurrence. On review of systems, she denied genitourinary symptoms. On physical examination, she weighed 91 lbs. Her temperature was 96.6???F and the blood pressure was 159/81 mmHg. The pulse was 68 bpm and her respiratory rate was 16 breaths per minute. In summary, Ms. Joyce returned for a routine post-radiotherapy follow-up. A recent cystoscopy demonstrated a CR. She will continue follow-up with urology as scheduled. Signed by: Dr. Carl Gonzales 06/18/2022 10:51:46 AM
[2022-06-18 10:56] LABS: Alanine Aminotransferase 11 U/L (0-33); Albumin Level 3.8 g/dL (3.5-5.2); Alkaline Phosphatase 78 U/L (35-105); Aspartate Amino Transferase 18 U/L (0-32); Blood Urea Nitrogen 14 mg/dL (8-23); Carbon Dioxide 24 mmol/L (22-29); Chloride 106 mmol/L (98-107); Globulin 3.7 g/dL (1.3-4.6); Glucose 96 mg/dL (65-115); Osmolality Calculated 292 mOsm/kg (285-295); Sodium 141 mmol/L (136-145); Total Bilirubin 0.3 mg/dL (0.15-1.2); Total Protein 7.5 g/dL (6.6-8.7)
[2022-06-18 11:30] LABS: Anion Gap 15.4 (5-19); Lactate Dehydrogenase 221 U/L (135-214); Potassium 4.4 mmol/L (3.5-5.1)
== END 2022-07-01 23:59 | disposition home or self-care (01) ==
PROVIDERS: Internal Medicine Medical Oncology; Visit Provider Radiology Radiation Oncology
DX: Z08 Encounter for follow-up examination after completed treatment for malignant neoplasm (principal); Z85.51 Personal history of malignant neoplasm of bladder; Z85.71 Personal history of Hodgkin lymphoma; Z92.21 Personal history of antineoplastic chemotherapy; Z92.3 Personal history of irradiation
CPT/HCPCS: 36415; 80053; 83615; 85025; 99024; 99213; 99214

== ENCOUNTER → 2022-07-29 08:44 | Outpatient (BNVA) | payer MEDICARE, OTHER, SELFPAY | PROVIDERS: Visit Provider Urology | DX: C67.8 Malignant neoplasm of overlapping sites of bladder (principal) | CPT/HCPCS: 52000; 88112 ==

== ENCOUNTER 2022-09-22 11:25 | Oncology outpatient (recurring) (ONCR) | payer MEDICARE, OTHER, SELFPAY ==
[2022-09-22 12:28] LABS: Basophils % 0.7 %; Eosinophils # 0.1 10^3/uL (0.0-0.8); Hematocrit 36.2 % (37.0-47.0); Lymphocytes % 22.5 %; Mean Corpuscular HGB Conc 30.4 g/dL (30.0-36.0); Mean Corpuscular Hemoglobin 30.6 pg (28.0-34.0); Mean Corpuscular Volume 100.6 fl (81-99); Mean Platelet Volume 10.9 fL (7.4-10.4); Monocytes # 0.4 10^3/uL (0.2-0.9); Monocytes % 8.8 %; Neutrophils # 2.79 10^3/uL (1.8-7.7); Neutrophils % 64.8 %; Nucleated Red Blood Cells % 0 %; Platelet Count 218 10^3/cmm (130-400); Red Cell Distribution Width 14.3 % (12.1-15.1); White Blood Count 4.3 10^3/uL (4.0-10.0)
[2022-09-22 12:47] LABS: Alanine Aminotransferase 13 U/L (0-33); Albumin Level 3.8 g/dL (3.5-5.2); Alkaline Phosphatase 77 U/L (35-105); Anion Gap 13.9 (5-19); Aspartate Amino Transferase 20 U/L (0-32); Blood Urea Nitrogen 13 mg/dL (8-23); Carbon Dioxide 24 mmol/L (22-29); Chloride 106 mmol/L (98-107); Globulin 3.4 g/dL (1.3-4.6); Glucose 85 mg/dL (65-115); Lactate Dehydrogenase 210 U/L (135-214); Osmolality Calculated 289 mOsm/kg (285-295); Potassium 3.9 mmol/L (3.5-5.1); Sodium 140 mmol/L (136-145); Total Bilirubin 0.4 mg/dL (0.15-1.2); Total Protein 7.2 g/dL (6.6-8.7)
== END 2022-10-01 23:59 | disposition home or self-care (01) ==
PROVIDERS: Internal Medicine Medical Oncology; Visit Provider Radiology Radiation Oncology
DX: C67.8 Malignant neoplasm of overlapping sites of bladder; C79.89 Secondary malignant neoplasm of other specified sites; Z90.89 Acquired absence of other organs; L53.9 Erythematous condition, unspecified; I82.890 Acute embolism and thrombosis of other specified veins; Z79.01 Long term (current) use of anticoagulants; Z79.899 Other long term (current) drug therapy; Z92.21 Personal history of antineoplastic chemotherapy; Z92.3 Personal history of irradiation
CPT/HCPCS: 36415; 80053; 83615; 85025; 99214

== ENCOUNTER → 2022-10-06 14:35 | Outpatient (BNVA) | payer MEDICARE, OTHER, SELFPAY | PROVIDERS: PCP Internal Medicine Medical Oncology; Visit Provider Urology | DX: C67.8 Malignant neoplasm of overlapping sites of bladder (principal) | CPT/HCPCS: 52000; 81003; 99213 ==

== ENCOUNTER 2022-10-21 10:34 | Outpatient (CLI) | payer MEDICARE, OTHER, SELFPAY ==
[2022-10-21] MEDS: iohexol 350 mg/mL 500 mL Btl (per mL) PO (11:46)
[2022-10-21] MEDS: iohexol 350 mg/mL 500 mL Btl (per mL) IV (12:11)
--- NOTE | 2022-10-21 12:30 | CT_ITS ---
WS: [id number] CT CHEST, ABDOMEN AND PELVIS WITH CONTRAST. HISTORY: followup bladder cancer and lymphoma TECHNIQUE: Contiguous 5 mm axial imaging performed through the chest, abdomen and pelvis with IV cont rast, oral contrast has been provided. Coronal and sagittal reformats chest. Coronal and sagittal ref ormats through the abdomen and pelvis. All CT scans at [facility] use at least one of these d ose optimization techniques: automated exposure control; mA and/or kV adjustment per patient size (in cludes targeted exams where dose is matched to clinical indication); or iterative reconstruction. CONTRAST: Omnipaque 350; 85 mL IV. DLP: 428.60 mGy.cm COMPARISON: 05/29/2022, 02/11/[address]: No pulmonary mass or nodule. Elevation LEFT hemidiaphragm with compressive atelectasis at t he lung base. Very small bilateral pleural effusions. RIGHT pleural effusion has decreased in size. N o enlarging or new mediastinal or hilar lymph nodes. Mild atherosclerosis aorta. Normal size pulmonar y artery. Heart size is slightly enlarged. Large portion of the stomach is intrathoracic. Abdomen CT: Normal size liver. There are a few small scattered hypodensities which are stable and pro bably cysts. No metastatic lesions. Cholelithiasis without acute cholecystitis. Normal size spleen. N o adrenal mass. Negative pancreas. Mild atherosclerosis aorta. Normal size kidneys. Bilateral extrare nal pelves. No adenopathy or ascites. Normal GI tract obstruction. Pelvic CT: Well-distended urinary bladder. No enhancing masses within the urinary bladder. Small bila teral diverticula are present. There is no recurrent mass or focal enhancement. No free fluid or jim opathy. CT/CT chest abdpel w/*[id number] IMPRESSION: 1. No evidence for recurrent enhancing mass in the urinary bladder. 2. No metastatic disease within the chest, abdomen or pelvis identified. 3. Cholelithiasis without acute cholecystitis. 4. Intrathoracic stomach. 5. Small bilateral pleural effusions. RIGHT pleural effusion has slightly decr eased in size. 6. Chronic mild hydronephrosis RIGHT kidney.
== END 2022-10-21 10:35 | disposition home or self-care (01) ==
PROVIDERS: PCP Internal Medicine Medical Oncology; Visit Provider Nurse Practitioner
DX: C67.8 Malignant neoplasm of overlapping sites of bladder (principal); C82.13 Follicular lymphoma grade II, intra-abdominal lymph nodes; K80.20 Calculus of gallbladder without cholecystitis without obstruction; J90 Pleural effusion, not elsewhere classified; N13.30 Unspecified hydronephrosis
CPT/HCPCS: 71260; 74177; Q9967

== ENCOUNTER 2022-10-27 12:11 | Oncology outpatient (recurring) (ONCR) | payer MEDICARE, OTHER, SELFPAY | END 2022-10-31 23:59 | disposition home or self-care (01) | LOC: ONCMED 12:12 | PROVIDERS: PCP Internal Medicine Medical Oncology; Visit Provider Radiology Radiation Oncology | DX: Z08 Encounter for follow-up examination after completed treatment for malignant neoplasm (principal); Z85.51 Personal history of malignant neoplasm of bladder; Z85.71 Personal history of Hodgkin lymphoma; Z92.21 Personal history of antineoplastic chemotherapy; Z92.3 Personal history of irradiation | CPT/HCPCS: 99214 ==

== ENCOUNTER 2023-02-17 11:21 | Oncology outpatient (recurring) (ONCR) | payer MEDICARE, OTHER, SELFPAY ==
[2023-02-17 11:40] VITALS: BP 167/73; PULSE 74; RESP 16; TEMP 36.4; O2SAT 99
[2023-02-17 12:00] LABS: Basophils % 0.5 %; Eosinophils # 0.1 10^3/uL (0.0-0.8); Eosinophils % 1.7 %; Hematocrit 34.8 % (36-47); Lymphocytes # 0.9 10^3/uL (0.8-4.8); Lymphocytes % 21.3 %; Mean Corpuscular HGB Conc 30.7 g/dL (30-55); Mean Corpuscular Hemoglobin 30.1 pg (27-33); Mean Platelet Volume 10.4 fL (7.4-10.4); Monocytes # 0.5 10^3/uL (0.2-0.9); Neutrophils # 2.67 10^3/uL (1.8-7.7); Neutrophils % 65.3 %; Nucleated Red Blood Cells % 0 %; Platelet Count 199 10^3/cmm (157-399); Red Blood Count 3.55 10^6/uL (3.85-5.65); Red Cell Distribution Width 15.4 % (12.1-15.1); White Blood Count 4.09 10^3/uL (3.29-11.43)
[2023-02-17 12:45] LABS: Alanine Aminotransferase 13 U/L (0-33); Albumin Level 3.9 g/dL (3.5-5.2); Alkaline Phosphatase 76 U/L (35-105); Anion Gap 11.9 (5-19); Aspartate Amino Transferase 18 U/L (0-32); Blood Urea Nitrogen 16 mg/dL (8-23); Calcium 8.7 mg/dL (8.5-10.5); Carbon Dioxide 28 mmol/L (22-29); Chloride 105 mmol/L (98-107); Globulin 3.3 g/dL (1.3-4.6); Glucose 91 mg/dL (65-115); Osmolality Calculated 293 mOsm/kg (285-295); Potassium 3.9 mmol/L (3.5-5.1); Sodium 141 mmol/L (136-145); Total Bilirubin 0.5 mg/dL (0.15-1.2); Total Protein 7.2 g/dL (6.6-8.7)
[2023-02-17 12:53] LABS: Lactate Dehydrogenase 212 U/L (135-214)
== END 2023-03-03 23:59 | disposition home or self-care (01) ==
PROVIDERS: PCP Internal Medicine Medical Oncology; Visit Provider Radiology Radiation Oncology
DX: C67.8 Malignant neoplasm of overlapping sites of bladder; C82.13 Follicular lymphoma grade II, intra-abdominal lymph nodes
CPT/HCPCS: 36415; 80053; 83615; 85025; 99214

== ENCOUNTER 2023-04-07 09:35 | Outpatient (CLI) | payer MEDICARE, OTHER, SELFPAY ==
[2023-04-07] MEDS: iohexol 350 mg/mL 500 mL Btl (per mL) PO (10:56)
--- NOTE | 2023-04-07 11:00 | CTR_ITS ---
PROCEDURE INFORMATION: Exam: CT Chest With Contrast; Diagnostic Exam date and time: 04/07/2023 11:08 AM Age: 82 years old Clinical indication: Condition or disease; Other: Bladder, lymphoma; Other: Bladder cancer, lymphoma; Follow-up oncological assessment; Prior surgery; Surgery date: 6+ months TECHNIQUE: Imaging protocol: Diagnostic computed tomography of the chest with contrast. Radiation optimization: All CT scans at this facility use at least one of these dose optimization techniques: automated exposure control; mA and/or kV adjustment per patient size (includes targeted exams where dose is matched to clinical indication); or iterative reconstruction. Contrast material: OMNI 350; Contrast volume: 85 ml; Contrast route: INTRAVENOUS (IV); REPORTING DATA: Count of CT and Cardiac NM exams in prior 12 months: This patient has received 2 known CTs and 0 known cardiac nuclear medicine studies in the 12 months prior to the current study. COMPARISON: CT chest abdpel w/*[id number] 10/21/2022 11:54 AM RADIATION DOSE METRICS: Total DLP (mGy-cm): 421.82 FINDINGS: Lungs: No pulmonary parenchymal nodules. Mild biapical pleural and parenchymal fibrosis. Pleural spaces: Unremarkable. No pneumothorax. No pleural effusion. Heart: Unremarkable. No cardiomegaly. No pericardial effusion. Lymph nodes: Unremarkable. No enlarged lymph nodes. Vasculature: Unremarkable. No aortic aneurysm. Diaphragm: Elevated left hemidiaphragm. Abutting atelectasis in the left lower lobe. Bones/joints: Unremarkable. No acute fracture. Soft tissues: Unremarkable. PROCEDURE INFORMATION: Exam: CT Abdomen And Pelvis With Contrast Exam date and time: 04/07/2023 11:08 AM Age: 82 years old Clinical indication: Condition or disease; Other: Bladder, lymphoma; Other: Bladder cancer, lymphoma; Follow-up oncological assessment; Prior surgery; Surgery date: 6+ months TECHNIQUE: Imaging protocol: Computed tomography of the abdomen and pelvis with contrast. Radiation optimization: All CT scans at this facility use at least one of these dose optimization techniques: automated exposure control; mA and/or kV adjustment per patient size (includes targeted exams where dose is matched to clinical indication); or iterative reconstruction. Contrast material: OMNI 350; Contrast volume: 85 ml; Contrast route: INTRAVENOUS (IV); REPORTING DATA: Count of CT and Cardiac NM exams in prior 12 months: This patient has received 2 known CTs and 0 known cardiac nuclear medicine studies in the 12 months prior to the current study. COMPARISON: CT chest abdpel w/*[id number] 10/21/2022 11:54 AM RADIATION DOSE METRICS: Total DLP (mGy-cm): 421.82 FINDINGS: Liver: Small hepatic cysts. Gallbladder and bile ducts: Several gallstones are present. Cholelithiasis. Pancreas: Normal. No ductal dilation. Spleen: Normal. No splenomegaly. Adrenal glands: Normal. No mass. Kidneys and ureters: Mild bilateral pelvocaliectasis without dilated ureters or demonstrable cause. The appearance is similar to what was seen previously. Stomach and bowel: Unremarkable. No obstruction. No mucosal thickening. Appendix: No evidence of appendicitis. Intraperitoneal space: Unremarkable. No free air. No significant fluid collection. Vasculature: Unremarkable. No abdominal aortic aneurysm. Lymph nodes: Unremarkable. No enlarged lymph nodes. Urinary bladder: Thickening of the wall of the urinary bladder diffusely. Several diverticula are present. Thickened urinary bladder wall. Reproductive: There appears to be fluid within the endometrial canal which would be abnormal considering the patient's age. Ultrasound recommended for further evaluation. Apparent fluid within the endometrial canal. Ultrasound recommended. Bones/joints: Unremarkable. No acute fracture. Soft tissues: Unremarkable. CT/CT chest abdpel w/*[id number] IMPRESSION: No significant change. No intrathoracic pathology. IMPRESSION: No significant change. No evidence of neoplastic disease.
[2023-04-07] MEDS: iohexol 350 mg/mL 500 mL Btl (per mL) IV (11:17)
== END 2023-04-07 09:36 | disposition home or self-care (01) ==
LOC: RAD 09:35
PROVIDERS: PCP Internal Medicine Medical Oncology; Visit Provider Internal Medicine Medical Oncology
DX: C67.8 Malignant neoplasm of overlapping sites of bladder (principal); C82.13 Follicular lymphoma grade II, intra-abdominal lymph nodes
CPT/HCPCS: 71260; 74177; Q9967

== ENCOUNTER 2023-04-14 15:44 | Oncology outpatient (recurring) (ONCR) | payer MEDICARE, OTHER, SELFPAY ==
[2023-04-07 10:02] VITALS: BP 157/71; PULSE 65; RESP 16; TEMP 36.1; O2SAT 97
[2023-04-07 10:37] LABS: Basophils % 0.5 %; Eosinophils % 1.1 %; Lymphocytes # 0.8 10^3/uL (0.8-4.8); Lymphocytes % 20.9 %; Mean Corpuscular HGB Conc 30.3 g/dL (30-55); Mean Corpuscular Hemoglobin 29.9 pg (27-33); Mean Corpuscular Volume 98.7 fl (85-98); Mean Platelet Volume 10.3 fL (7.4-10.4); Monocytes # 0.3 10^3/uL (0.2-0.9); Monocytes % 8.7 %; Neutrophils # 2.52 10^3/uL (1.8-7.7); Neutrophils % 68.5 %; Nucleated Red Blood Cells % 0 %; Platelet Count 236 10^3/cmm (157-399); Red Blood Count 3.75 10^6/uL (3.85-5.65); Red Cell Distribution Width 15.4 % (12.1-15.1); White Blood Count 3.68 10^3/uL (3.29-11.43)
[2023-04-07 10:58] LABS: Alanine Aminotransferase 18 U/L (0-33); Albumin Level 4.3 g/dL (3.5-5.2); Alkaline Phosphatase 88 U/L (35-105); Anion Gap 15.2 (5-19); Aspartate Amino Transferase 21 U/L (0-32); Blood Urea Nitrogen 19 mg/dL (8-23); Calcium 9.6 mg/dL (8.5-10.5); Carbon Dioxide 25 mmol/L (22-29); Chloride 106 mmol/L (98-107); Globulin 3.3 g/dL (1.3-4.6); Glucose 114 mg/dL (65-115); Lactate Dehydrogenase 271 U/L (135-214); Osmolality Calculated 297 mOsm/kg (285-295); Potassium 4.2 mmol/L (3.5-5.1); Sodium 142 mmol/L (136-145); Total Bilirubin 0.3 mg/dL (0.15-1.2); Total Protein 7.6 g/dL (6.6-8.7)
== END 2023-05-03 23:59 | disposition home or self-care (01) ==
PROVIDERS: PCP Internal Medicine Medical Oncology; Visit Provider Radiology Radiation Oncology
DX: C67.8 Malignant neoplasm of overlapping sites of bladder (principal); C82.13 Follicular lymphoma grade II, intra-abdominal lymph nodes; N32.89 Other specified disorders of bladder; Z79.899 Other long term (current) drug therapy
CPT/HCPCS: 36415; 71260; 74177; 80053; 83615; 85025; 99214; Q9967

== ENCOUNTER 2023-07-21 10:49 | Oncology outpatient (recurring) (ONCR) | payer MEDICARE, OTHER, SELFPAY ==
[2023-07-21 11:12] LABS: Basophils % 0.5 %; Eosinophils % 0.8 %; Hematocrit 35.4 % (36-47); Lymphocytes % 25.5 %; Mean Corpuscular HGB Conc 30.5 g/dL (30-55); Mean Corpuscular Volume 91.7 fl (85-98); Mean Platelet Volume 10.6 fL (7.4-10.4); Monocytes # 0.3 10^3/uL (0.2-0.9); Monocytes % 8.2 %; Neutrophils # 2.43 10^3/uL (1.8-7.7); Neutrophils % 64.7 %; Nucleated Red Blood Cells % 0 %; Platelet Count 256 10^3/cmm (157-399); Red Blood Count 3.86 10^6/uL (3.85-5.65); Red Cell Distribution Width 16.2 % (12.1-15.1); White Blood Count 3.76 10^3/uL (3.29-11.43)
[2023-07-21 11:35] LABS: Alanine Aminotransferase 12 U/L (0-33); Albumin Level 4.1 g/dL (3.5-5.2); Alkaline Phosphatase 83 U/L (35-105); Anion Gap 14.8 (5-19); Aspartate Amino Transferase 17 U/L (0-32); Blood Urea Nitrogen 13 mg/dL (8-23); Carbon Dioxide 27 mmol/L (22-29); Chloride 102 mmol/L (98-107); Ferritin 20 ng/mL (15-150); Globulin 3.6 g/dL (1.3-4.6); Glucose 114 mg/dL (65-115); Iron 52 ug/dL (37-145); Lactate Dehydrogenase 225 U/L (135-214); Osmolality Calculated 291 mOsm/kg (285-295); Percent Saturation 12.8 % (20-50); Potassium 3.8 mmol/L (3.5-5.1); Sodium 140 mmol/L (136-145); Total Bilirubin 0.4 mg/dL (0.15-1.2); Total Iron Binding Capacity 405 mcg/dl; Total Protein 7.7 g/dL (6.6-8.7); Unsaturated Iron Binding 353 ug/dL (112-347)
== END 2023-08-02 23:59 | disposition home or self-care (01) ==
LOC: ONCMED 10:51
PROVIDERS: Internal Medicine; PCP Internal Medicine Medical Oncology; Visit Provider Radiology Radiation Oncology
DX: C67.8 Malignant neoplasm of overlapping sites of bladder (principal); C82.13 Follicular lymphoma grade II, intra-abdominal lymph nodes; N32.89 Other specified disorders of bladder; Z79.899 Other long term (current) drug therapy
CPT/HCPCS: 36415; 80053; 82728; 83540; 83550; 83615; 85025; 99214

== ENCOUNTER → 2023-09-08 09:54 | Outpatient (BNVA) | payer MEDICARE, OTHER, SELFPAY | PROVIDERS: PCP Internal Medicine Medical Oncology; Visit Provider Internal Medicine Medical Oncology | DX: D50.9 Iron deficiency anemia, unspecified (principal); C67.8 Malignant neoplasm of overlapping sites of bladder | CPT/HCPCS: 83550; 85025 ==

== ENCOUNTER 2023-10-06 08:46 | Outpatient (CLI) | payer MEDICARE, OTHER, SELFPAY ==
--- NOTE | 2023-10-06 10:30 | CTR_ITS ---
PROCEDURE INFORMATION: Exam: CT Chest With Contrast; Diagnostic Exam date and time: 10/06/2023 11:06 AM Age: 83 years old Clinical indication: Condition or disease; Primary cancer: Lymphoma, bladder; Prior surgery; Surgery date: 6+ months; Additional info: Surveillance, please complete before 10/20/23 oncology f/u visit TECHNIQUE: Imaging protocol: Diagnostic computed tomography of the chest with contrast. Radiation optimization: All CT scans at this facility use at least one of these dose optimization techniques: automated exposure control; mA and/or kV adjustment per patient size (includes targeted exams where dose is matched to clinical indication); or iterative reconstruction. Contrast material: OMNI 350; Contrast volume: 95 ml; Contrast route: INTRAVENOUS (IV); COMPARISON: CT chest abdpel w/*[id number] 04/07/2023 11:08 AM RADIATION DOSE METRICS: Total DLP (mGy-cm): 438.5 FINDINGS: Lungs: Mild biapical scarring when correlated with prior exam. Left basilar atelectasis in association with elevated or eventrated left hemidiaphragm, as noted with prior exam. No pulmonary parenchymal infiltrate or consolidation. Small calcified granuloma right lung apex. No suspicious pulmonary nodule. Pleural spaces: Small posterior bibasilar effusion. This is similar in appearance on the left with prior exam and appearing new on the right. No pneumothorax. Heart: Unremarkable. No cardiomegaly. No pericardial effusion. Lymph nodes: Unremarkable. No enlarged lymph nodes. Vasculature: Unremarkable. No aortic aneurysm. Bones/joints: Mild spondylotic change thoracic spine. Soft tissues: Unremarkable. PROCEDURE INFORMATION: Exam: CT Abdomen And Pelvis With Contrast Exam date and time: 10/06/2023 11:06 AM Age: 83 years old Clinical indication: Condition or disease; Primary cancer: Lymphoma, bladder; Prior surgery; Surgery date: 6+ months; Additional info: Surveillance, please complete before 10/20/23 oncology f/u visit TECHNIQUE: Imaging protocol: Computed tomography of the abdomen and pelvis with contrast. Radiation optimization: All CT scans at this facility use at least one of these dose optimization techniques: automated exposure control; mA and/or kV adjustment per patient size (includes targeted exams where dose is matched to clinical indication); or iterative reconstruction. Contrast material: OMNI 350; Contrast volume: 95 ml; Contrast route: INTRAVENOUS (IV); COMPARISON: CT chest abdpel w/*[id number] 04/07/2023 11:08 AM RADIATION DOSE METRICS: Total DLP (mGy-cm): 438.5 FINDINGS: Liver: A few tiny rounded hypodense foci within the liver appear unchanged with prior exam, likely tiny cysts. Liver shows no suspicious abnormality. Gallbladder and bile ducts: Gallstones or cholelithiasis, chronic with prior exam. No significant biliary ductal dilatation. Pancreas: Normal. No ductal dilation. Spleen: Normal. No splenomegaly. Adrenal glands: Normal. No mass. Kidneys and ureters: Mild prominence of pelvicaliceal collecting structures of the kidneys, though less prominent or improved with prior exam. No urinary tract stone or ureterectasis. No perinephric stranding. Stomach and bowel: Oral contrast is seen within a portion of small bowel, particularly more distally, along with oral contrast throughout the colon. Mild increased small bowel gas suggest mild ileus. No bowel obstruction. No abnormal bowel thickening or focal inflammatory change. No abnormal mesenteric stranding. Appendix: The appendix is visualized. No CT findings of appendicitis. Intraperitoneal space: No significant free fluid or ascites. No free air. Vasculature: Nonaneurysmal abdominal aorta. Major vascular structures appear patent. Lymph nodes: No significant lymphadenopathy is seen within the abdomen or pelvis. Urinary bladder: Urinary bladder appears well distended. Urinary bladder diverticula are seen as noted with prior exam. Mild urinary bladder wall thickening, less prominent than prior exam with urinary bladder more distended with today's exam. No other significant abnormality. Reproductive: Unremarkable as visualized. Bones/joints: Mild lumbar dextroscoliosis. Spondylotic change lumbar spine. Soft tissues: Unremarkable. CT/CT chest [facility] w/*[id number] IMPRESSION: 1. Chronic mild biapical scarring. 2. Chronic elevation or eventration of the left hemidiaphragm with chronic subjacent left basilar atelectasis. 3. Small posterior bibasilar effusions, chronic on the left with prior exam and appearing new on the right. 4. No acute findings otherwise and no significant change otherwise with prior exam. No lymphadenopathy is seen. IMPRESSION: 1. Chronic tiny hepatic cysts with prior exam. 2. Chronic cholelithiasis with prior exam. 3. Mild prominence of the pelvicaliceal collecting structures bilaterally though improved from prior exam. No urinary tract stone or ureterectasis is seen. 4. Chronic urinary bladder diverticula. Mild urinary bladder wall thickening, though less prominent than prior exam. 5. Mild small bowel ileus appearance, without findings to indicate obstruction. 6. No acute findings otherwise. No lymphadenopathy is seen.
[2023-10-06] MEDS: iohexol 350 mg/mL 500 mL Btl (per mL) PO (10:33)
[2023-10-06 10:59] LABS: Blood Urea Nitrogen 13 mg/dL (8-23)
[2023-10-06] MEDS: iohexol 350 mg/mL 500 mL Btl (per mL) IV (11:32)
== END 2023-10-06 08:47 | disposition home or self-care (01) ==
LOC: RAD 08:46
PROVIDERS: PCP Internal Medicine Medical Oncology; Visit Provider Nurse Practitioner Family
DX: C82.13 Follicular lymphoma grade II, intra-abdominal lymph nodes (principal); C67.8 Malignant neoplasm of overlapping sites of bladder; N32.3 Diverticulum of bladder
CPT/HCPCS: 71260; 74177; 82565; 84520; Q9967

== ENCOUNTER 2023-10-20 13:38 | Oncology outpatient (recurring) (ONCR) | payer MEDICARE, OTHER, SELFPAY ==
[2023-10-20 14:05] LABS: Basophils % 0.6 %; Eosinophils # 0.1 10^3/uL (0.0-0.8); Eosinophils % 1.7 %; Hematocrit 36.3 % (36-47); Lymphocytes % 26.3 %; Mean Corpuscular HGB Conc 31.4 g/dL (30-55); Mean Corpuscular Hemoglobin 29.8 pg (27-33); Mean Corpuscular Volume 94.8 fl (85-98); Mean Platelet Volume 10.6 fL (7.4-10.4); Monocytes # 0.3 10^3/uL (0.2-0.9); Monocytes % 7.2 %; Neutrophils # 2.31 10^3/uL (1.8-7.7); Neutrophils % 63.9 %; Nucleated Red Blood Cells % 0 %; Platelet Count 216 10^3/cmm (157-399); Red Blood Count 3.83 10^6/uL (3.85-5.65); Red Cell Distribution Width 16.9 % (12.1-15.1); White Blood Count 3.61 10^3/uL (3.29-11.43)
[2023-10-20 14:29] LABS: Alanine Aminotransferase 13 U/L (0-33); Albumin Level 3.9 g/dL (3.5-5.2); Alkaline Phosphatase 78 U/L (35-105); Anion Gap 13.7 (5-19); Aspartate Amino Transferase 16 U/L (0-32); Blood Urea Nitrogen 10 mg/dL (8-23); Calcium 8.9 mg/dL (8.5-10.5); Carbon Dioxide 24 mmol/L (22-29); Chloride 108 mmol/L (98-107); Ferritin 49 ng/mL (15-150); Globulin 3.5 g/dL (1.3-4.6); Glucose 101 mg/dL (65-115); Iron 109 ug/dL (37-145); Lactate Dehydrogenase 199 U/L (135-214); Osmolality Calculated 293 mOsm/kg (285-295); Percent Saturation 35.2 % (20-50); Potassium 3.7 mmol/L (3.5-5.1); Sodium 142 mmol/L (136-145); Total Bilirubin 0.4 mg/dL (0.15-1.2); Total Iron Binding Capacity 309 mcg/dl; Total Protein 7.4 g/dL (6.6-8.7); Unsaturated Iron Binding 200 ug/dL (112-347)
== END 2023-11-01 23:59 | disposition home or self-care (01) ==
PROVIDERS: Nurse Practitioner Family; PCP Internal Medicine Medical Oncology; Visit Provider Radiology Radiation Oncology
DX: C67.8 Malignant neoplasm of overlapping sites of bladder (principal); C82.13 Follicular lymphoma grade II, intra-abdominal lymph nodes; D50.9 Iron deficiency anemia, unspecified
CPT/HCPCS: 36415; 80053; 82728; 83540; 83550; 83615; 85025; 99214

== ENCOUNTER 2023-11-03 14:02 | Oncology outpatient (recurring) (ONCR) | payer MEDICARE, OTHER, SELFPAY ==
--- OUTSIDE RECORDS SUMMARY | 2023-11-03 14:04 | XMS_ITS | Patient Health Record ---
Author Name Unknown Organization [facility] Address [address] [facility] [place] [address] Care Team Providers Care Computer Technology Instructor Name Role Phone Eric Palomares Primary Care Provider ADELSO Fatima Unavailable [phone] Allergies No Known Allergies Results Component Value Reference Range Notes Urinalysis, Routine Reviewed date:10/12/2023 02:14:12 PM Interpretation: Performing Lab: Notes/Report: Urine-Color yellow Appearance cleare Glucose - Bilirubin - Ketones - Specific [place] 1.015 Occult Blood - pH 6.0 Urine Protein - Urobilinogen,Semi-Qn - Nitrite, Urine - WBC Esterase - Urinalysis Gross Exam - Urinalysis, Routine Reviewed date:05/01/2023 07:51:50 PM Interpretation: Performing Lab: Notes/Report: Urine-Color yellow Appearance clear Glucose - Bilirubin - Ketones - Specific [place] 1.030 Occult Blood trace pH 5.5 Urine Protein - Urobilinogen,Semi-Qn - Nitrite, Urine - WBC Esterase - Urinalysis, Routine Reviewed date:03/15/2023 06:06:06 PM Interpretation: Performing Lab: Notes/Report: Urine-Color yellow Appearance clear Glucose - Bilirubin - Ketones - Specific [place] 1.020 Occult Blood - pH 5.5 Urine Protein - Urobilinogen,Semi-Qn - Nitrite, Urine - WBC Esterase - Reason For Referral Reason bladder cancer Diagnosis 1 Bladder cancer (C67. 9) Referring Provider First Name Luciano Referring Provider Last Name Sharon Referring Provider Speciality Urology Referred Organization [facility] Referred Provider ADELSO ADAM Referred Address [address] [facility],[place],[address], Referred Provider Specialty Urology Referral Priority Routine Medications Medication SIG (Take, Route, Frequency, Duration) Notes Start Date End Date Status Xarelto 10 MG 1 tablet Orally Once a day 3 Active Problems Problem Type SNOMED Code ICD Code Onset Dates Problem Status W/U Status Risk Notes Problem [id number] Bladder cancer (C67.9) Active confirmed Problem History of hematuria (355837005) History of hematuria (Z87.448) Active confirmed Problem Personal history of primary malignant neoplasm of urinary bladder (863440593) History of bladder cancer (Z85.51) Active confirmed Problem Malignant tumor of urinary bladder (713090572) Malignant neoplasm of urinary bladder, unspecified site (C67.9) Active confirmed Vital Signs Heart Rate 64 /min 10/12/2023 Temperature 97.9 degrees Fahrenheit 10/12/2023 Height-cm 160.02 cm 10/12/2023 Blood pressure diastolic 90 mm Hg 10/12/2023 Weight-kg 45.36 kg 10/12/2023 Height 63 in 10/12/2023 Blood pressure systolic 154 mm Hg 10/12/2023 Weight 100 lbs 10/12/2023 BMI 17.71 kg/m2 10/12/2023 Encounters Encounter Location Date Provider Diagnosis [facility] [employer], [facility] [address] [facility] [place] [address] 05/08/2023 [facility] [facility], [facility] [address] [facility] [place] [address] 01/19/2023 [facility] Bladder cancer C67.9 and Malignant neoplasm of urinary bladder, unspecified site C67.9 [facility], [facility] [address] [facility] [place] [address] 04/20/2023 [facility] Malignant neoplasm o f urinary bladder, unspecified site C67.9 [facility], [facility] [address] [facility] [place] [address] 06/15/2023 [facility] History of bladder cancer Z85.51 and History of hematuria Z87.448 [facility], [facility] [address] [facility] [place] [address] 10/12/2023 [facility] History of bladder cancer Z85.51 and History of hematuria Z87.448 [facility], [facility] [address] [facility] [place] [address] 04/21/2023 ADELSO ADAM [facility], [facility] [address] [facility] [place] [address] 10/30/2023 ADELSO ADAM Preop testing Z01.81 8 ; Anemia, unspecified type D64.9 and Malignant neoplasm of urinary bladder, unspecified site C67.9 Assessments Encounter Date Diagnosis (ICD Code) Assessment Notes Treat ment Notes Treatment Clinical Notes 04/20/2023 Malignant neoplasm of urinary bladder, unspecified site (ICD-10 - C67.9) 06/15/2023 History of hematuria (ICD-10 - Z87.448) 06/15/2023 History of bladder cancer (ICD-10 - Z85.51) 01/19/2023 Bladder cancer (ICD-10 - C67.9) 10/12/2023 History of bladder cancer (ICD-10 - Z85.51) 10/30/2023 Preop testing (ICD-10 - Z01.818) 10/30/2023 Anemia, unspecified type (ICD-10 - D64.9) 01/19/2023 Malignant neoplasm of urinary bladder, unspecified site (ICD-10 - C67.9) 10/12/2023 History of hematuria (ICD-10 - Z87.448) 10/30/2023 Malignant neoplasm of urinary bladder, unspecified site (ICD-10 - C67.9) Plan Of Treatment Pending Test Test Name Order Date Basic Metabolic Panel 10/30/2023 CBC w/ Auto Diff 10/30/2023 UA Reflex -- [id number] 10/30/2023 Electrocardiogram, 12 Lead Tracing-[id number] 10/30/2023 Next Appt Details Provider Name:ADELSO GARCIA Droon, 11/10/2023 01:00:00 PM, [address] [facility] [place], [address], Insurance Providers Payer Name Payer Address Payer Phone Subscriber Number Group Number Insured Name Patient Relationship to Insured Coverage Start Date Coverage End Date [place] Medicare [address] YUSUF VANG [id number] Rosa Joyce Self - patient is the insured [employer] [address] [address] CRISTAL HOLLEY [id number] Rosa Joyce Self - patient is the insured Medical (General) History Medical History History ICD Code cancer, bladder Arthritis anemia hx kidney stones hx UTIs 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
[2023-11-03 14:44] LABS: Add Urine Microscopic? NO; Charge for UA Resulting for Rev
[2023-11-03 14:56] LABS: Blood Urine Neg (Negative); Glucose Urine UA Norm (Normal); Ketones Urine Negative (Negative); Nitrate Urine Negative (Negative); Protein Urine Neg (Negative); Specific Gravity, Urine 1.005 (1.005-1.030); Urine Appearance Clear (CLEAR); Urine Color Yellow (Yellow); pH Urine 7 (5-7)
[2023-11-03 14:57] LABS: Bilirubin Urine Neg (Negative); Leukocyte Esterase Urine Negative (Negative); Urobilinogen Urine Norm (Negative)
[2023-11-03 15:27] LABS: Basophils % 0.3 %; Eosinophils % 0.9 %; Hematocrit 36.9 % (36-47); Lymphocytes # 0.8 10^3/uL (0.8-4.8); Mean Corpuscular HGB Conc 31.4 g/dL (30-55); Mean Corpuscular Hemoglobin 29.9 pg (27-33); Mean Corpuscular Volume 95.1 fl (85-98); Mean Platelet Volume 10.6 fL (7.4-10.4); Monocytes # 0.3 10^3/uL (0.2-0.9); Monocytes % 10.6 %; Neutrophils # 2.05 10^3/uL (1.8-7.7); Neutrophils % 63.9 %; Nucleated Red Blood Cells % 0 %; Platelet Count 184 10^3/cmm (157-399); Red Blood Count 3.88 10^6/uL (3.85-5.65); Red Cell Distribution Width 15.9 % (12.1-15.1); White Blood Count 3.21 10^3/uL (3.29-11.43)
[2023-11-03 15:43] LABS: Anion Gap 12.5 (5-19); Blood Urea Nitrogen 11 mg/dL (8-23); Calcium 9.1 mg/dL (8.5-10.5); Carbon Dioxide 29 mmol/L (22-29); Chloride 104 mmol/L (98-107); Glucose 103 mg/dL (65-115); Osmolality Calculated 292 mOsm/kg (285-295); Potassium 4.5 mmol/L (3.5-5.1); Sodium 141 mmol/L (136-145)
== END 2023-12-02 23:59 | disposition home or self-care (01) ==
LOC: ONCMED 14:02
PROVIDERS: Urology; PCP Internal Medicine Medical Oncology; Visit Provider Radiology Radiation Oncology
DX: C67.8 Malignant neoplasm of overlapping sites of bladder (principal); C82.13 Follicular lymphoma grade II, intra-abdominal lymph nodes; D50.9 Iron deficiency anemia, unspecified; N32.89 Other specified disorders of bladder; Z79.899 Other long term (current) drug therapy
CPT/HCPCS: 36415; 80048; 81003; 85025

== ENCOUNTER 2024-04-19 11:38 | Oncology outpatient (recurring) (ONCR) | payer MEDICARE, OTHER, SELFPAY ==
[2024-04-07] MEDS: iohexol 350 mg/mL 500 mL Btl (per mL) PO (11:59)
--- NOTE | 2024-04-07 12:00 | CTR_ITS ---
PROCEDURE INFORMATION: Exam: CT Chest With Contrast; Diagnostic Exam date and time: 04/07/2024 12:06 PM Age: 83 years old Clinical indication: Condition or disease; Other: Lymphoma and bladder cancer; Prior surgery; Surgery date: 6+ months; Additional info: Bladder cancer, lymphoma TECHNIQUE: Imaging protocol: Diagnostic computed tomography of the chest with contrast. Sagittal and coronal reformatted images were created and reviewed. Radiation optimization: All CT scans at this facility use at least one of these dose optimization techniques: automated exposure control; mA and/or kV adjustment per patient size (includes targeted exams where dose is matched to clinical indication); or iterative reconstruction. Contrast material: [id number]; Contrast volume: 95 ml; Contrast route: INTRAVENOUS (IV); COMPARISON: CT chest abdpel w/*[id number] 10/06/2023 11:06 AM RADIATION DOSE METRICS: Total DLP (mGy-cm): 396.97 FINDINGS: Trachea: Tracheobronchial structures are patent. Lungs: Stable left lower lobe compressive atelectasis secondary to the large hiatal hernia. No pulmonary parenchymal nodules or masses. Pleural spaces: No pneumothorax. No pleural effusion. Heart: Stable moderate enlargement of the heart. Stable small amount of fluid in the superior pericardial recesses. Esophagus: The esophagus is unremarkable. Mediastinal space: No mediastinal hematoma. No pneumomediastinum. Lymph nodes: No lymphadenopathy. Vasculature: No evidence for aortic aneurysm or aortic dissection. Pulmonary arteries are unremarkable. Pulmonary veins are unremarkable. 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 Bones/joints: Bones are diffusely osteopenic. No lytic or sclerotic bony lesions. Mild degenerative changes in the visualized spine. Soft tissues: No acute abnormality in the extrathoracic soft tissues. PROCEDURE INFORMATION: Exam: CT Abdomen And Pelvis With Contrast Exam date and time: 04/07/2024 12:06 PM Age: 83 years old Clinical indication: Condition or disease; Other: Lymphoma and bladder cancer; Prior surgery; Surgery date: 6+ months; Additional info: Bladder cancer, lymphoma TECHNIQUE: Imaging protocol: Computed tomography of the abdomen and pelvis with contrast. Sagittal and coronal reformatted images were created and reviewed. Radiation optimization: All CT scans at this facility use at least one of these dose optimization techniques: automated exposure control; mA and/or kV adjustment per patient size (includes targeted exams where dose is matched to clinical indication); or iterative reconstruction. Contrast material: [id number]; Contrast volume: 95 ml; Contrast route: INTRAVENOUS (IV); COMPARISON: 1. CT chest abdpel w/*[id number] 10/06/2023 11:[address] chest abdpel w/*[id number] 02/11/2022 11:[address] chest abd pel w con* 08/21/2017 10:49 AM RADIATION DOSE METRICS: Total DLP (mGy-cm): 396.97 FINDINGS: Liver: Diffuse, mildly decreased attenuation in the liver. Findings are stable and consistent with mild fatty infiltration. Multiple low-density subcentimeter foci in the liver are stable compared with 02/11/2022, the largest measures 9.0 mm (series 5, image 18). Gallbladder and biliary ducts: Multiple stones in the gallbladder. Findings are stable. No gallbladder wall thickening. No biliary ductal dilatation. Pancreas: 6.1 x 7.3 mm low-density focus in the body of the pancreas is stable dating back to 08/21/2017 (series 5, image 26). It is uncertain whether this is connected to the main pancreatic duct. No pancreatic atrophy. No pancreatic ductal dilatation. Spleen: Stable calcified granulomas in the spleen. Adrenal glands: The right and left adrenal glands are unremarkable. Kidneys and ureters: Stable mild right hydronephrosis with focal caliber change at the right ureteropelvic junction. No obvious obstructing stone or mass. Findings suggest mild right UPJ obstruction. The left kidney is unremarkable. The right and left ureters are unremarkable. Stomach and bowel: No acute abnormality in the stomach, small bowel, or colon. Appendix: The appendix is visualized and is unremarkable. No findings to suggest acute appendicitis. Intraperitoneal space: No free intraperitoneal air. No ascites. No loculated fluid collections to suggest an abscess. Vasculature: Mild atherosclerotic changes in the visualized arteries. No evidence for aortic aneurysm or aortic dissection. Hepatic veins, portal veins, splenic vein, and SMV are patent. Lymph nodes: No lymphadenopathy. Urinary bladder: Diffuse, moderate bladder wall thickening. Reproductive: The uterus, right ovary, and left ovary are unremarkable. Bones/joints: Bones are diffusely osteopenic. Degenerative changes in the spine, sacroiliac joints, and hips. Mild scoliosis in the lumbar spine. No lytic or sclerotic bony lesions. Soft tissues: No acute abnormality in the extra-abdominal soft tissues. CT/CT chest abdpel w/*[id number] IMPRESSION: 1. 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 2. Stable left lower lobe compressive atelectasis secondary to the large hiatal hernia. 3. No evidence for metastatic disease in the chest. 4. Incidental/nonacute findings are listed in the report. IMPRESSION: 1. Diffuse, moderate bladder wall thickening. In the correct clinical setting, this may suggest cystitis. Recommend correlation with laboratory findings. Alternatively, this may be secondary to chronic outlet obstruction. 2. Stable findings suggesting mild right UPJ obstruction. Recommend clinical correlation. 3. No evidence for metastatic disease in the abdomen or pelvis 4. Stable mild fatty infiltration of the liver. 5. Multiple low-density subcentimeter foci in the liver are stable compared with 02/11/2022. 6. 6.1 x 7.3 mm low-density focus in the body of the pancreas is stable dating back to 08/21/2017. It is uncertain whether this is connected to the main pancreatic duct. 7. Stable cholelithiasis. 8. Incidental/nonacute findings are listed in the report.
[2024-04-07 12:08] LABS: Blood Urea Nitrogen 17 mg/dL (8-23)
[2024-04-07] MEDS: iohexol 350 mg/mL 500 mL Btl (per mL) IV (12:13)
[2024-04-19 12:20] LABS: Basophils % 0.2 %; Eosinophils % 0.6 %; Hematocrit 38.2 % (36-47); Lymphocytes # 0.8 10^3/uL (0.8-4.8); Lymphocytes % 18.2 %; Mean Corpuscular HGB Conc 31.2 g/dL (30-55); Mean Corpuscular Hemoglobin 30.3 pg (27-33); Mean Corpuscular Volume 97.2 fl (85-98); Mean Platelet Volume 10.4 fL (7.4-10.4); Monocytes # 0.4 10^3/uL (0.2-0.9); Neutrophils # 3.36 10^3/uL (1.8-7.7); Neutrophils % 72.8 %; Nucleated Red Blood Cells % 0 %; Platelet Count 197 10^3/cmm (157-399); Red Blood Count 3.93 10^6/uL (3.85-5.65); Red Cell Distribution Width 14.9 % (12.1-15.1); White Blood Count 4.62 10^3/uL (3.29-11.43)
[2024-04-19 12:40] LABS: Alanine Aminotransferase 16 U/L (0-33); Albumin Level 3.9 g/dL (3.5-5.2); Alkaline Phosphatase 76 U/L (35-105); Anion Gap 15.6 (5-19); Aspartate Amino Transferase 21 U/L (0-32); Blood Urea Nitrogen 13 mg/dL (8-23); Calcium 8.8 mg/dL (8.5-10.5); Carbon Dioxide 25 mmol/L (22-29); Chloride 104 mmol/L (98-107); Creatinine Clr Calc Pharmacy 36.9545; Globulin 3.3 g/dL (1.3-4.6); Glucose 116 mg/dL (65-115); Lactate Dehydrogenase 187 U/L (135-214); Osmolality Calculated 293 mOsm/kg (285-295); Potassium 3.6 mmol/L (3.5-5.1); Sodium 141 mmol/L (136-145); Total Bilirubin 0.5 mg/dL (0.15-1.2); Total Protein 7.2 g/dL (6.6-8.7)
[2024-04-19 13:39] LABS: Bilirubin Urine Negative (Negative); Blood Urine 3+ (Negative); Glucose Urine UA Negative (Normal); Ketones Urine Trace (Negative); Leukocyte Esterase Urine Negative (Negative); Nitrate Urine Negative (Negative); Protein Urine Negative (Negative); Specific Gravity, Urine 1.007 (1.005-1.030); Urine Appearance Clear (CLEAR); Urine Color Yellow (Yellow); Urobilinogen Urine 0.2 mg/dL (Negative); pH Urine 5.5 (5-7)
[2024-04-19 13:45] LABS: Add Urine Microscopic? YES; Bacteria Urine None Seen /hpf; Hyaline Casts Urine 0.81 /lpf; Squamous Epithelial Cell Urine 0-5 /hpf (0-5); WBC Urine 0-5 /hpf (0-5)
[2024-04-19 14:02] LABS: UA Slide Review UA Slide Review Perf
[2024-04-19 14:03] LABS: Add Urine Culture? No; Calcium Oxalate Crystals Urine 15-25 /hpf
[2024-04-19 17:56] LABS: Ferritin 94 ng/mL (15-150); Iron 121 ug/dL (37-145); Total Iron Binding Capacity 288 mcg/dl; Unsaturated Iron Binding 167 ug/dL (112-347)
== END 2024-05-03 23:59 | disposition home or self-care (01) ==
PROVIDERS: Nurse Practitioner Family; PCP Internal Medicine Medical Oncology; Visit Provider Radiology Radiation Oncology
DX: C82.13 Follicular lymphoma grade II, intra-abdominal lymph nodes; C67.8 Malignant neoplasm of overlapping sites of bladder; Z92.21 Personal history of antineoplastic chemotherapy; Z92.3 Personal history of irradiation; D50.9 Iron deficiency anemia, unspecified; R93.41 Abnormal radiologic findings on diagnostic imaging of renal pelvis, ureter, or bladder; Z53.9 Procedure and treatment not carried out, unspecified reason
CPT/HCPCS: 71260; 74177; 80053; 81001; 82565; 82728; 83540; 83550; 83615; 84520; 85025; 99214

== ENCOUNTER 2024-10-18 11:36 | Oncology outpatient (recurring) (ONCR) | payer MEDICARE, OTHER, SELFPAY ==
[2024-10-18 12:47] LABS: Basophils % 0.5 %; Eosinophils % 0.8 %; Hematocrit 34.7 % (36-47); Lymphocytes # 0.8 10^3/uL (0.8-4.8); Lymphocytes % 19.9 %; Mean Corpuscular HGB Conc 31.1 g/dL (30-55); Mean Corpuscular Hemoglobin 31.5 pg (27-33); Mean Corpuscular Volume 101.2 fl (85-98); Mean Platelet Volume 10.2 fL (7.4-10.4); Monocytes # 0.4 10^3/uL (0.2-0.9); Monocytes % 9.6 %; Neutrophils # 2.67 10^3/uL (1.8-7.7); Neutrophils % 68.9 %; Nucleated Red Blood Cells % 0 %; Platelet Count 252 10^3/cmm (157-399); Red Blood Count 3.43 10^6/uL (3.85-5.65); Red Cell Distribution Width 17.1 % (12.1-15.1); White Blood Count 3.87 10^3/uL (3.29-11.43)
[2024-10-18 13:13] LABS: Alanine Aminotransferase 19 U/L (0-33); Alkaline Phosphatase 74 U/L (35-105); Anion Gap 15.2 (5-19); Aspartate Amino Transferase 23 U/L (0-32); Blood Urea Nitrogen 13 mg/dL (8-23); Calcium 8.8 mg/dL (8.5-10.5); Carbon Dioxide 27 mmol/L (22-29); Chloride 105 mmol/L (98-107); Globulin 3.3 g/dL (1.3-4.6); Glucose 83 mg/dL (65-115); Osmolality Calculated 297 mOsm/kg (285-295); Potassium 3.2 mmol/L (3.5-5.1); Sodium 144 mmol/L (136-145); Total Bilirubin 0.3 mg/dL (0.15-1.2); Total Protein 7.3 g/dL (6.6-8.7)
== END 2024-10-31 23:59 | disposition home or self-care (01) ==
PROVIDERS: Internal Medicine Medical Oncology; PCP Nurse Practitioner; Visit Provider Radiology Radiation Oncology
DX: C67.8 Malignant neoplasm of overlapping sites of bladder (principal); Z85.72 Personal history of non-Hodgkin lymphomas; Z92.3 Personal history of irradiation; D64.9 Anemia, unspecified; Z92.21 Personal history of antineoplastic chemotherapy
CPT/HCPCS: 36415; 80053; 85025; 99214

== ENCOUNTER 2025-01-10 12:07 | Outpatient (CLI) | payer MEDICARE, OTHER, SELFPAY ==
--- NOTE | 2025-01-10 12:13 | CTR_ITS ---
PROCEDURE INFORMATION: Exam: CT Chest With Contrast; Diagnostic Exam date and time: 01/10/2025 1:39 PM Age: 84 years old Clinical indication: Condition or disease; Other: Follicular lymphoma; Additional info: Dr. Harjit Kaplan would like this done on 01/10/25 TECHNIQUE: Imaging protocol: Diagnostic computed tomography of the chest with contrast. Radiation optimization: All CT scans at this facility use at least one of these dose optimization techniques: automated exposure control; mA and/or kV adjustment per patient size (includes targeted exams where dose is matched to clinical indication); or iterative reconstruction. Contrast material: OMNIPAQUE 350; Contrast volume: 100 ml; Contrast route: INTRAVENOUS (IV); COMPARISON: CT chest abdpel w/*[id number] 04/07/2024 12:06 PM RADIATION DOSE METRICS: Total DLP (mGy-cm): 414.57 FINDINGS: Tubes, catheters and devices: None. Thyroid: Unremarkable. Trachea: Trachea and central airways are patent. Lungs: Biapical scarring. No consolidation. Compressive atelectasis of the left lung base secondary to large hiatal hernia. Lung nodules: No suspicious nodules. Pleural spaces: No pneumothorax. No pleural effusion. Stable pericardial recess fluid. Heart: Stable mild cardiomegaly. No pericardial effusion. Esophagus: Stable large hiatal hernia containing the entire stomach with organoaxial malrotation, without obstruction. Mediastinal space: Unremarkable. Lymph nodes: No mediastinal, hilar, or axillary lymphadenopathy. Vasculature: No aortic aneurysm or dissection. No central pulmonary embolism. Bones/joints: Diffusely decreased bone density. No suspicious lesion. Soft tissues: Unremarkable. PROCEDURE INFORMATION: Exam: CT Abdomen And Pelvis With Contrast Exam date and time: 01/10/2025 1:39 PM Age: 84 years old Clinical indication: Condition or disease; Other: Follicular lymphoma; Additional info: Dr. Harjit Kaplan would like this done on 01/10/25 TECHNIQUE: Imaging protocol: Computed tomography of the abdomen and pelvis with contrast. Radiation optimization: All CT scans at this facility use at least one of these dose optimization techniques: automated exposure control; mA and/or kV adjustment per patient size (includes targeted exams where dose is matched to clinical indication); or iterative reconstruction. Contrast material: OMNIPAQUE 350; Contrast volume: 100 ml; Contrast route: INTRAVENOUS (IV); COMPARISON: CT chest abdpel w/*[id number] 10/21/2022 11:54 AM RADIATION DOSE METRICS: Total DLP (mGy-cm): 414.57 FINDINGS: Lungs: Please see separately dictated CT chest report from the same date. Liver: Several 9 mm and smaller scattered hypodense lesions are stable since 10/21/2022, and likely represent benign cysts or hemangiomas. Gallbladder and biliary ducts: Cholelithiasis. No biliary ductal dilation. Pancreas: Stable 7 mm hypodensity in the posterior body of the pancreas. No pancreatic ductal dilation. Spleen: A few scattered punctate calcified granulomas. Adrenal glands: Normal. Kidneys and ureters: Symmetrically enhancing kidneys. Stable mild right hydronephrosis with caliber change at the right UPJ. Trace left hydronephrosis. No obstructing stones. Stomach and bowel: No dilated or inflamed bowel. Appendix: Normal. Intraperitoneal space: No free air. No free fluid. Vasculature: Unremarkable. No abdominal aortic aneurysm. Lymph nodes: No lymphadenopathy. Urinary bladder: Diffuse urinary bladder wall thickening with a few small diverticula . A new 1.8 x 1.0 cm polypoid peripherally calcified soft tissue intraluminal mass arises from the right lateral aspect of the base of the urinary bladder (series 7, image 74). Reproductive: Unremarkable uterus. No adnexal mass. Bones/joints: Diffusely decreased bone density. Multilevel chronic degenerative changes of the spine. Soft tissues: Unremarkable. CT/CT chest abdpel w/*[id number] IMPRESSION: 1. No evidence of metastatic disease in the chest. 2. Stable large hiatal hernia containing the entire stomach with organoaxial malrotation, without obstruction. IMPRESSION: 1. No evidence of metastatic disease in the abdomen or pelvis. 2. A new 1.8 x 1.0 cm polypoid peripherally calcified intraluminal soft tissue mass arises from the right lateral aspect of the base of the urinary bladder (series 7, image 74), concerning for malignancy. Urologic referral is recommended. 3. Diffuse urinary bladder wall thickening with a few small diverticula, similar in appearance to 04/07/2024, possibly secondary to chronic or recurrent infectious cystitis versus outlet obstruction. Clinical correlation is recommended. 4. 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 5. 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
[2025-01-10 13:35] LABS: Blood Urea Nitrogen 10 mg/dL (8-23)
[2025-01-10] MEDS: iohexol 350 mg/mL 500 mL Btl (per mL) IV (13:46)
[2025-01-10] MEDS: iohexol 350 mg/mL 500 mL Btl (per mL) PO (13:46)
== END 2025-01-10 12:08 | disposition home or self-care (01) ==
LOC: RAD 12:08
PROVIDERS: PCP Nurse Practitioner; Visit Provider Internal Medicine Medical Oncology
DX: C67.8 Malignant neoplasm of overlapping sites of bladder (principal); C82.13 Follicular lymphoma grade II, intra-abdominal lymph nodes; N13.30 Unspecified hydronephrosis; N32.3 Diverticulum of bladder; K86.89 Other specified diseases of pancreas
CPT/HCPCS: 71260; 74177; 82565; 84520

== ENCOUNTER 2025-01-17 11:05 | Oncology outpatient (recurring) (ONCR) | payer MEDICARE, OTHER, SELFPAY ==
[2025-01-17 11:23] LABS: Hematocrit 34.9 % (36-47); Hemoglobin 10.80 g/dL (11.27-16.99); Mean Corpuscular HGB Conc 30.9 g/dL (30-55); Mean Corpuscular Hemoglobin 31.1 pg (27-33); Mean Corpuscular Volume 100.6 fl (85-98); Nucleated Red Blood Cells % 0 %; Platelet Count 300 10^3/cmm (157-399); Red Blood Count 3.47 10^6/uL (3.85-5.65); White Blood Count 5.75 10^3/uL (3.29-11.43)
[2025-01-17 12:00] LABS: Alanine Aminotransferase 18 U/L (0-33); Albumin Level 3.7 g/dL (3.5-5.2); Alkaline Phosphatase 85 U/L (35-105); Anion Gap 14.9 (5-19); Aspartate Amino Transferase 20 U/L (0-32); Blood Urea Nitrogen 11 mg/dL (8-23); Calcium 9.0 mg/dL (8.5-10.5); Carbon Dioxide 27 mmol/L (22-29); Chloride 106 mmol/L (98-107); Ferritin 169 ng/mL (15-150); Globulin 3.5 g/dL (1.3-4.6); Glucose 96 mg/dL (65-115); Iron 89 ug/dL (37-145); Osmolality Calculated 297 mOsm/kg (285-295); Potassium 3.9 mmol/L (3.5-5.1); Sodium 144 mmol/L (136-145); Total Iron Binding Capacity 247 mcg/dl; Total Protein 7.2 g/dL (6.6-8.7); Unsaturated Iron Binding 158 ug/dL (112-347)
[2025-01-17 12:16] LABS: Vitamin B12 167 pg/mL (232-1245)
== END 2025-01-31 23:59 | disposition home or self-care (01) ==
PROVIDERS: PCP Nurse Practitioner; Visit Provider Internal Medicine Medical Oncology
DX: C67.8 Malignant neoplasm of overlapping sites of bladder (principal); R03.0 Elevated blood-pressure reading, without diagnosis of hypertension; D51.9 Vitamin B12 deficiency anemia, unspecified; N32.89 Other specified disorders of bladder; Z92.21 Personal history of antineoplastic chemotherapy; Z92.25 Personal history of immunosuppression therapy; Z85.72 Personal history of non-Hodgkin lymphomas; Z79.899 Other long term (current) drug therapy
CPT/HCPCS: 36415; 80053; 82607; 82728; 82746; 83540; 83550; 85025; 99214